=== PATIENT | female | born 1930 | race Asian ===

== ENCOUNTER 2017-10-30 08:26 | Inpatient (IN) | payer OTHER ==
[2017-10-30] MEDS: hydrALAzine 20 MG INJ IV (10:51)
[2017-10-30 10:53] LABS: ADD MAN DIFF? NO
[2017-10-30] MEDS: SOD CHLORIDE 0.9% 1,000 ML IV (11:01)
[2017-10-30] MEDS: morphine 2 MG INJ IV (11:01)
[2017-10-30] MEDS: ONDANSETRON 4 MG INJ IV (11:01)
[2017-10-30 11:05] LABS: WHITE BLOOD COUNT 9.7 10^3/ul (4.8-10.8)
[2017-10-30 11:05] LABS: BASOPHIL # 0.1 10^3/ul (0.0-0.1); BASOPHILS % 0.6 % (0.0-2.0); EOSINOPHILS # 0.3 10^3/ul (0.0-0.5); EOSINOPHILS % 2.6 % (0.0-7.0); HEMATOCRIT 40.2 % (37.0-47.0); HEMOGLOBIN 13.4 g/dl (12.0-16.0); LYMPHOCYTES # 2.5 10^3/ul (0.8-2.9); LYMPHOCYTES % 26.1 % (15.0-51.0); MEAN CORPUSCULAR HEMOGLOBIN 31.6 pg (29.0-33.0); MEAN CORPUSCULAR HGB CONC 33.3 g/dl (32.0-37.0); MEAN CORPUSCULAR VOLUME 94.8 fl (82.0-101.0); MEAN PLATELET VOLUME 10.9 fl (7.4-10.4); MONOCYTE # 1.5 10^3/ul (0.3-0.9); MONOCYTES % 15.2 % (0.0-11.0); NEUTROPHIL # 5.4 10^3/ul (1.6-7.5); NEUTROPHILS % 55.3 % (39.0-77.0); PLATELET COUNT 222 10^3/UL (140-415); RED BLOOD COUNT 4.24 10^6/ul (4.20-5.40); RED CELL DISTRIBUTION WIDTH 13.7 % (11.5-14.5)
[2017-10-30 11:22] LABS: INR 1.03; PROTIME 13.6 Sec (11.9-14.9); PT RATIO 1.1
[2017-10-30 11:23] LABS: PARTIAL THROMBOPLASTIN TIME 32.4 Sec (25.0-35.0)
[2017-10-30 11:26] LABS: ALANINE AMINOTRANSFERASE 23 IU/L (13-69); ALBUMIN 4.2 g/dl (3.3-4.9); ALBUMIN/GLOBULIN RATIO 1.07; ALKALINE PHOSPHATASE 89 IU/L (42-121); ANION GAP 15 (8-16); ASPARTATE AMINO TRANSFERASE 20 IU/L (15-46); BILIRUBIN,INDIRECT 0.2 mg/dl (0-1.1); BILIRUBIN,TOTAL 0.2 mg/dl (0.2-1.3); BLOOD UREA NITROGEN 13 mg/dl (7-20); CALCIUM 9.9 mg/dl (8.4-10.2); CARBON DIOXIDE 29 mmol/L (21-31); CHLORIDE 96 mmol/L (97-110); CREATINE KINASE 46 IU/L (23-200); CREATININE 0.74 mg/dl (0.44-1.00); GLUCOSE 116 mg/dl (70-220); POTASSIUM 4.5 mmol/L (3.5-5.1); SODIUM 135 mmol/L (135-144); TOTAL PROTEIN 8.1 g/dl (6.1-8.1)
[2017-10-30 11:37] LABS: ADD UMIC YES; UR ASCORBIC ACID 20 mg/dL (NEGATIVE); UR BILIRUBIN (Dip) NEGATIVE (NEGATIVE); UR BLOOD (Dip) NEGATIVE (NEGATIVE); UR CLARITY CLEAR (CLEAR); UR COLOR YELLOW (YELLOW); UR GLUCOSE (Dip) NEGATIVE (NEGATIVE); UR KETONES (Dip) NEGATIVE (NEGATIVE); UR LEUKOCYTE ESTERASE (Dip) NEGATIVE Leu/ul (NEGATIVE); UR NITRITE (Dip) NEGATIVE (NEGATIVE); UR RBC 1 /HPF (0-5); UR SPECIFIC GRAVITY (Dip) 1.004 (1.003-1.030); UR TOTAL PROTEIN (Dip) 1+ mg/dl (NEGATIVE); UR UROBILINOGEN (Dip) NEGATIVE (NEGATIVE); UR WBC 3 /HPF (0-5)
[2017-10-30 11:56] LABS: B-TYPE NATRIURETIC PEPTIDE 1310 PG/ML (0-450); CK INDEX 2.1; CK-MB 0.95 ng/ml (0.0-2.4)
[2017-10-30 11:59] LABS: TROPONIN-I < 0.012 ng/ml (0.00-0.12)
[2017-10-30] MEDS ORDERED: ZOLPIDEM 5 MG TAB PO (17:00)
[2017-10-30] MEDS ORDERED: ONDANSETRON 4 MG INJ IV (17:00)
[2017-10-30] MEDS ORDERED: GLUCOSE GEL 15 GRAM TUBE PO ×2 (17:30)
[2017-10-30] MEDS ORDERED: DEXTROSE 50% 50 ML SYRINGE IV ×2 (17:30)
[2017-10-30] MEDS ORDERED: GLUCAGON 1 MG INJ IM (17:30)
[2017-10-30] MEDS ORDERED: GLUCOSE GEL 15 GRAM TUBE BUCCAL (17:30)
[2017-10-30] MEDS: INSULIN ASPART [NOVOLOG] 3 ML PEN SC ×3 (17:35→21:00)
[2017-10-30] MEDS: DOCUSATE SODIUM 100 MG CAP PO (18:00)
[2017-10-30] MEDS: FUROSEMIDE 20 MG INJ IV (18:00)
[2017-10-30 18:44] LABS: CREATINE KINASE 60 IU/L (23-200)
[2017-10-30 18:46] LABS: MAGNESIUM 2.1 mg/dl (1.7-2.5)
[2017-10-30 18:57] LABS: CK INDEX 4.3; CK-MB 2.55 ng/ml (0.0-2.4)
[2017-10-30 19:02] LABS: TROPONIN-I 0.666 ng/ml (0.00-0.12)
[2017-10-30] MEDS: ATORVASTATIN 10 MG TAB PO (21:56)
[2017-10-30] MEDS: DOXAZOSIN 4 MG TAB PO (21:56)
[2017-10-30] MEDS: HYDROCODONE/APAP (5/325) TAB PO (23:59)
[2017-10-31 00:08] LABS: CREATINE KINASE 58 IU/L (23-200)
[2017-10-31 00:19] LABS: CK INDEX 5.2; CK-MB 3.02 ng/ml (0.0-2.4)
[2017-10-31 01:41] LABS: ADD MAN DIFF? NO
[2017-10-31 01:44] LABS: BASOPHIL # 0.1 10^3/ul (0.0-0.1); BASOPHILS % 0.8 % (0.0-2.0); EOSINOPHILS # 0.3 10^3/ul (0.0-0.5); EOSINOPHILS % 3.3 % (0.0-7.0); HEMATOCRIT 35.2 % (37.0-47.0); HEMOGLOBIN 11.8 g/dl (12.0-16.0); LYMPHOCYTES % 22.5 % (15.0-51.0); MEAN CORPUSCULAR HEMOGLOBIN 32.2 pg (29.0-33.0); MEAN CORPUSCULAR HGB CONC 33.5 g/dl (32.0-37.0); MEAN CORPUSCULAR VOLUME 96.2 fl (82.0-101.0); MONOCYTE # 1.3 10^3/ul (0.3-0.9); MONOCYTES % 14.8 % (0.0-11.0); NEUTROPHIL # 5.1 10^3/ul (1.6-7.5); NEUTROPHILS % 58.3 % (39.0-77.0); PLATELET COUNT 205 10^3/UL (140-415); RED BLOOD COUNT 3.66 10^6/ul (4.20-5.40)
[2017-10-31 01:44] LABS: WHITE BLOOD COUNT 8.7 10^3/ul (4.8-10.8)
[2017-10-31] MEDS: HEPARIN 1000 UNITS/ML 10 ML INJ IV (01:49)
[2017-10-31] MEDS: HEPARIN 25000 UNITS/250 ML 250 ML IV (01:51)
[2017-10-31] MEDS: ACCU-CHEK XX (02:00)
[2017-10-31 02:10] LABS: PROTIME 14.4 Sec (11.9-14.9); PT RATIO 1.1
[2017-10-31 02:18] LABS: PARTIAL THROMBOPLASTIN TIME 30.7 Sec (25.0-35.0)
[2017-10-31] MEDS: DOCUSATE SODIUM 100 MG CAP PO ×2 (06:49→20:38)
[2017-10-31] MEDS: PANTOPRAZOLE (EC) 40 MG TAB PO (06:49)
[2017-10-31] MEDS: LEVOTHYROXINE 50 MCG TAB PO (06:50)
[2017-10-31] MEDS ORDERED: HEPARIN 1000 UNITS/ML 10 ML INJ IV (07:30)
[2017-10-31] MEDS: INSULIN ASPART [NOVOLOG] 3 ML PEN SC ×7 (08:00→20:47)
[2017-10-31 08:12] LABS: ADD MAN DIFF? NO
[2017-10-31 08:15] LABS: WHITE BLOOD COUNT 9.2 10^3/ul (4.8-10.8)
[2017-10-31 08:15] LABS: BASOPHIL # 0.1 10^3/ul (0.0-0.1); BASOPHILS % 0.8 % (0.0-2.0); EOSINOPHILS # 0.3 10^3/ul (0.0-0.5); EOSINOPHILS % 3.6 % (0.0-7.0); HEMATOCRIT 38.6 % (37.0-47.0); LYMPHOCYTES # 2.5 10^3/ul (0.8-2.9); LYMPHOCYTES % 27.4 % (15.0-51.0); MEAN CORPUSCULAR HEMOGLOBIN 32.5 pg (29.0-33.0); MEAN CORPUSCULAR HGB CONC 33.7 g/dl (32.0-37.0); MEAN CORPUSCULAR VOLUME 96.5 fl (82.0-101.0); MEAN PLATELET VOLUME 11.3 fl (7.4-10.4); MONOCYTE # 1.2 10^3/ul (0.3-0.9); MONOCYTES % 12.9 % (0.0-11.0); NEUTROPHIL # 5.1 10^3/ul (1.6-7.5); NEUTROPHILS % 55.1 % (39.0-77.0); PLATELET COUNT 223 10^3/UL (140-415); RED CELL DISTRIBUTION WIDTH 14.2 % (11.5-14.5)
[2017-10-31] MEDS: VALSARTAN 160 MG TAB PO (08:24)
[2017-10-31] MEDS: LORATADINE 10 MG TAB PO (08:24)
[2017-10-31] MEDS: CLOPIDOGREL 75 MG TAB PO (08:24)
[2017-10-31] MEDS: ASPIRIN 81 MG TAB PO (08:25)
[2017-10-31] MEDS: AMLODIPINE 5 MG TAB PO (08:25)
[2017-10-31] MEDS: CALCIUM CARBONATE 1.25 GM TAB PO (08:25)
[2017-10-31] MEDS: NEBIVOLOL 5 MG TAB PO (08:25)
[2017-10-31] MEDS: INSULIN GLARGINE [LANtus] 3 ML PEN SC (08:28)
[2017-10-31 08:35] LABS: HEMOGLOBIN A1C 6.3 % (0-5.9)
[2017-10-31 08:40] LABS: ANION GAP 14 (8-16); BLOOD UREA NITROGEN 19 mg/dl (7-20); CARBON DIOXIDE 28 mmol/L (21-31); CHLORIDE 99 mmol/L (97-110); CHOL/HDL RATIO 2.8 RATIO; CHOLESTEROL 88 mg/dl (100-200); CREATININE 0.82 mg/dl (0.44-1.00); GLUCOSE 110 mg/dl (70-220); HDL CHOLESTEROL 31 mg/dl (33-92); LDL CHOLESTEROL,CALCULATED 36 mg/dl; MAGNESIUM 2.2 mg/dl (1.7-2.5); POTASSIUM 4.3 mmol/L (3.5-5.1); SODIUM 137 mmol/L (135-144); TRIGLYCERIDES 105 mg/dl (0-149)
[2017-10-31 08:42] LABS: CREATINE KINASE 58 IU/L (23-200)
[2017-10-31 08:47] LABS: CK INDEX 4.7; CK-MB 2.74 ng/ml (0.0-2.4)
[2017-10-31 08:48] LABS: TROPONIN-I 0.637 ng/ml (0.00-0.12)
[2017-10-31] MEDS ORDERED: ENOXAPARIN 40 MG/0.4 ML SYG SC (09:00)
[2017-10-31 09:10] LABS: PARTIAL THROMBOPLASTIN TIME 140.9 Sec (25.0-35.0)
[2017-10-31 11:11] LABS: CREATINE KINASE 51 IU/L (23-200)
[2017-10-31 11:20] LABS: CK INDEX 4.3; CK-MB 2.17 ng/ml (0.0-2.4)
[2017-10-31 11:23] LABS: FREE THYROXINE INDEX (Calc) 4.01 ug/ml (0.65-3.89); T3 UPTAKE 40.1 % (23.5-40.5)
[2017-10-31 11:26] LABS: TROPONIN-I 0.454 ng/ml (0.00-0.12)
[2017-10-31 11:36] LABS: THYROID STIMULATING HORMONE 0.815 MIU/L (0.465-4.680)
[2017-10-31] MEDS: GUAIFENESIN/DM (SR) TAB PO ×2 (13:50→20:37)
[2017-10-31] MEDS: OLOPATADINE 0.1% 5 ML OPH BOTH EYES ×2 (13:50→20:39)
[2017-10-31] MEDS ORDERED: SALINE 0.65% 45 ML NAS SPRAY NASAL (14:30)
[2017-10-31 18:32] LABS: CREATINE KINASE 63 IU/L (23-200)
[2017-10-31 18:35] LABS: PARTIAL THROMBOPLASTIN TIME 32.7 Sec (25.0-35.0)
[2017-10-31 18:45] LABS: CK INDEX 2.9; CK-MB 1.84 ng/ml (0.0-2.4)
[2017-10-31 18:46] LABS: TROPONIN-I 0.382 ng/ml (0.00-0.12)
[2017-10-31] MEDS: ATORVASTATIN 10 MG TAB PO (20:37)
[2017-10-31] MEDS: DOXAZOSIN 4 MG TAB PO (20:37)
[2017-10-31] MEDS: LATANOPROST 0.005% 2.5 ML OPH BOTH EYES (20:38)
[2017-11-01] MEDS: ACCU-CHEK XX (03:00)
[2017-11-01] MEDS: PANTOPRAZOLE (EC) 40 MG TAB PO (06:05)
[2017-11-01] MEDS: LEVOTHYROXINE 50 MCG TAB PO (06:06)
[2017-11-01] MEDS: INSULIN ASPART [NOVOLOG] 3 ML PEN SC ×7 (08:51→20:59)
[2017-11-01] MEDS: INSULIN GLARGINE [LANtus] 3 ML PEN SC (08:53)
[2017-11-01] MEDS: ASPIRIN 81 MG TAB PO (08:54)
[2017-11-01] MEDS: OLOPATADINE 0.1% 5 ML OPH BOTH EYES ×2 (08:54→20:52)
[2017-11-01] MEDS: CLOPIDOGREL 75 MG TAB PO (08:55)
[2017-11-01] MEDS: AMLODIPINE 5 MG TAB PO (08:55)
[2017-11-01] MEDS: VALSARTAN 160 MG TAB PO ×2 (08:55→20:50)
[2017-11-01] MEDS: DOCUSATE SODIUM 100 MG CAP PO ×2 (08:56→20:50)
[2017-11-01] MEDS: GUAIFENESIN/DM (SR) TAB PO ×2 (08:56→20:50)
[2017-11-01] MEDS: LORATADINE 10 MG TAB PO (08:56)
[2017-11-01] MEDS: NEBIVOLOL 5 MG TAB PO (08:56)
[2017-11-01] MEDS: CALCIUM CARBONATE 1.25 GM TAB PO (08:56)
[2017-11-01 08:59] LABS: ADD MAN DIFF? NO
[2017-11-01 09:06] LABS: BASOPHIL # 0.1 10^3/ul (0.0-0.1); BASOPHILS % 0.8 % (0.0-2.0); EOSINOPHILS # 0.4 10^3/ul (0.0-0.5); EOSINOPHILS % 3.5 % (0.0-7.0); HEMATOCRIT 36.9 % (37.0-47.0); HEMOGLOBIN 12.4 g/dl (12.0-16.0); LYMPHOCYTES # 2.2 10^3/ul (0.8-2.9); LYMPHOCYTES % 21.8 % (15.0-51.0); MEAN CORPUSCULAR HEMOGLOBIN 32.1 pg (29.0-33.0); MEAN CORPUSCULAR HGB CONC 33.6 g/dl (32.0-37.0); MEAN CORPUSCULAR VOLUME 95.6 fl (82.0-101.0); MEAN PLATELET VOLUME 11.7 fl (7.4-10.4); MONOCYTE # 1.4 10^3/ul (0.3-0.9); MONOCYTES % 13.3 % (0.0-11.0); NEUTROPHIL # 6.1 10^3/ul (1.6-7.5); NEUTROPHILS % 60.4 % (39.0-77.0); PLATELET COUNT 201 10^3/UL (140-415); RED BLOOD COUNT 3.86 10^6/ul (4.20-5.40)
[2017-11-01 09:06] LABS: WHITE BLOOD COUNT 10.2 10^3/ul (4.8-10.8)
[2017-11-01 09:52] LABS: B-TYPE NATRIURETIC PEPTIDE 1470 PG/ML (0-450)
[2017-11-01 09:57] LABS: ALBUMIN 3.5 g/dl (3.3-4.9); ANION GAP 13 (8-16); BLOOD UREA NITROGEN 21 mg/dl (7-20); CALCIUM 8.8 mg/dl (8.4-10.2); CARBON DIOXIDE 28 mmol/L (21-31); CHLORIDE 99 mmol/L (97-110); CREATININE 0.82 mg/dl (0.44-1.00); GLUCOSE 183 mg/dl (70-220); MAGNESIUM 2.2 mg/dl (1.7-2.5); PHOSPHORUS 3.1 mg/dl (2.5-4.9); POTASSIUM 4.3 mmol/L (3.5-5.1); SODIUM 136 mmol/L (135-144)
[2017-11-01] MEDS: FUROSEMIDE 20 MG INJ IV ×2 (12:33→20:58)
[2017-11-01] MEDS: DOXAZOSIN 4 MG TAB PO (20:49)
[2017-11-01] MEDS: ATORVASTATIN 10 MG TAB PO (20:49)
[2017-11-01] MEDS: LATANOPROST 0.005% 2.5 ML OPH BOTH EYES (20:52)
[2017-11-02] MEDS: ACCU-CHEK XX (02:00)
[2017-11-02] MEDS: PANTOPRAZOLE (EC) 40 MG TAB PO (05:57)
[2017-11-02] MEDS: LEVOTHYROXINE 50 MCG TAB PO (05:57)
[2017-11-02] MEDS: INSULIN ASPART [NOVOLOG] 3 ML PEN SC ×7 (08:00→20:39)
[2017-11-02] MEDS: INSULIN GLARGINE [LANtus] 3 ML PEN SC (08:02)
[2017-11-02] MEDS: OLOPATADINE 0.1% 5 ML OPH BOTH EYES ×2 (08:31→20:35)
[2017-11-02] MEDS: FUROSEMIDE 20 MG INJ IV ×2 (08:31→20:37)
[2017-11-02] MEDS: NEBIVOLOL 5 MG TAB PO (08:32)
[2017-11-02] MEDS: ASPIRIN 81 MG TAB PO (08:32)
[2017-11-02] MEDS: VALSARTAN 160 MG TAB PO ×2 (08:33→20:37)
[2017-11-02] MEDS: GUAIFENESIN/DM (SR) TAB PO ×2 (08:33→20:35)
[2017-11-02] MEDS: DOCUSATE SODIUM 100 MG CAP PO ×2 (08:33→20:36)
[2017-11-02] MEDS: LORATADINE 10 MG TAB PO (08:33)
[2017-11-02] MEDS: CLOPIDOGREL 75 MG TAB PO (08:34)
[2017-11-02] MEDS: CALCIUM CARBONATE 1.25 GM TAB PO (08:34)
[2017-11-02] MEDS: AMLODIPINE 5 MG TAB PO (08:34)
[2017-11-02 09:00] LABS: ADD MAN DIFF? NO
[2017-11-02 09:02] LABS: BASOPHIL # 0.1 10^3/ul (0.0-0.1); BASOPHILS % 0.7 % (0.0-2.0); EOSINOPHILS # 0.4 10^3/ul (0.0-0.5); EOSINOPHILS % 4.8 % (0.0-7.0); HEMATOCRIT 39.4 % (37.0-47.0); HEMOGLOBIN 13.5 g/dl (12.0-16.0); LYMPHOCYTES # 2.2 10^3/ul (0.8-2.9); LYMPHOCYTES % 25.9 % (15.0-51.0); MEAN CORPUSCULAR HEMOGLOBIN 32.3 pg (29.0-33.0); MEAN CORPUSCULAR HGB CONC 34.3 g/dl (32.0-37.0); MEAN CORPUSCULAR VOLUME 94.3 fl (82.0-101.0); MEAN PLATELET VOLUME 11.2 fl (7.4-10.4); MONOCYTE # 1.3 10^3/ul (0.3-0.9); NEUTROPHIL # 4.4 10^3/ul (1.6-7.5); NEUTROPHILS % 52.2 % (39.0-77.0); PLATELET COUNT 225 10^3/UL (140-415); RED BLOOD COUNT 4.18 10^6/ul (4.20-5.40)
[2017-11-02 09:02] LABS: WHITE BLOOD COUNT 8.4 10^3/ul (4.8-10.8)
[2017-11-02 09:28] LABS: ALBUMIN 3.7 g/dl (3.3-4.9); ANION GAP 14 (8-16); BLOOD UREA NITROGEN 23 mg/dl (7-20); CALCIUM 8.7 mg/dl (8.4-10.2); CARBON DIOXIDE 29 mmol/L (21-31); CHLORIDE 99 mmol/L (97-110); CREATININE 0.82 mg/dl (0.44-1.00); GLUCOSE 145 mg/dl (70-220); MAGNESIUM 2.1 mg/dl (1.7-2.5); PHOSPHORUS 3.4 mg/dl (2.5-4.9); POTASSIUM 3.9 mmol/L (3.5-5.1); SODIUM 138 mmol/L (135-144)
[2017-11-02] MEDS: LATANOPROST 0.005% 2.5 ML OPH BOTH EYES (20:35)
[2017-11-02] MEDS: ATORVASTATIN 10 MG TAB PO (20:36)
[2017-11-02] MEDS: DOXAZOSIN 4 MG TAB PO (20:36)
[2017-11-03] MEDS: ACCU-CHEK XX (01:43)
[2017-11-03] MEDS: hydrALAzine 20 MG INJ IV ×3 (04:54→20:08)
[2017-11-03] MEDS: LEVOTHYROXINE 50 MCG TAB PO (06:02)
[2017-11-03] MEDS: PANTOPRAZOLE (EC) 40 MG TAB PO (06:03)
[2017-11-03] MEDS: OLOPATADINE 0.1% 5 ML OPH BOTH EYES ×2 (08:16→20:03)
[2017-11-03] MEDS: ASPIRIN 81 MG TAB PO (08:17)
[2017-11-03] MEDS: FUROSEMIDE 20 MG INJ IV ×2 (08:17→20:05)
[2017-11-03] MEDS: NEBIVOLOL 5 MG TAB PO (08:17)
[2017-11-03] MEDS: DOCUSATE SODIUM 100 MG CAP PO ×2 (08:18→20:05)
[2017-11-03] MEDS: GUAIFENESIN/DM (SR) TAB PO ×2 (08:18→20:06)
[2017-11-03] MEDS: AMLODIPINE 5 MG TAB PO (08:18)
[2017-11-03] MEDS: VALSARTAN 160 MG TAB PO ×2 (08:18→20:06)
[2017-11-03] MEDS: LORATADINE 10 MG TAB PO (08:18)
[2017-11-03] MEDS: CLOPIDOGREL 75 MG TAB PO (08:19)
[2017-11-03] MEDS: CALCIUM CARBONATE 1.25 GM TAB PO (08:19)
[2017-11-03] MEDS: INSULIN ASPART [NOVOLOG] 3 ML PEN SC ×7 (08:20→20:10)
[2017-11-03] MEDS: INSULIN GLARGINE [LANtus] 3 ML PEN SC (08:20)
[2017-11-03 08:23] LABS: ANION GAP 17 (8-16); BLOOD UREA NITROGEN 30 mg/dl (7-20); CALCIUM 9.1 mg/dl (8.4-10.2); CARBON DIOXIDE 25 mmol/L (21-31); CHLORIDE 99 mmol/L (97-110); CREATININE 0.91 mg/dl (0.44-1.00); GLUCOSE 191 mg/dl (70-220); POTASSIUM 3.9 mmol/L (3.5-5.1); SODIUM 137 mmol/L (135-144)
[2017-11-03] MEDS: LATANOPROST 0.005% 2.5 ML OPH BOTH EYES (20:03)
[2017-11-03] MEDS: DOXAZOSIN 4 MG TAB PO (20:05)
[2017-11-03] MEDS: ATORVASTATIN 10 MG TAB PO (20:06)
[2017-11-03] MEDS: ACETAMINOPHEN 325 MG TAB PO (20:06)
== END 2017-11-03 23:15 | disposition home health service (06) | DRG 304 ==
LOC: E/R 08:26 → MS3 12:36 → MS4 23:43
DX: I16.0 Hypertensive urgency (principal); I50.31 Acute diastolic (congestive) heart failure; I11.0 Hypertensive heart disease with heart failure; E78.5 Hyperlipidemia, unspecified; E11.9 Type 2 diabetes mellitus without complications; E03.9 Hypothyroidism, unspecified; R74.8 Abnormal levels of other serum enzymes; Z79.02 Long term (current) use of antithrombotics/antiplatelets; Z79.84 Long term (current) use of oral hypoglycemic drugs
CPT/HCPCS: 70450; 70551; 71045; 80048; 80053; 80061; 80069; 81001; 82550; 82553; 82962; 83036; 83735; 83880; 84436; 84443; 84479; 84484; 85025; 85610; 85730; 87086; 93005; 93306; 93880; 96374; 96375; 97110; 97116; 97530; 99285-25; J1940

== ENCOUNTER 2018-01-31 10:49 | Inpatient (IN) | payer OTHER ==
[2018-01-31] MEDS: ALBUTEROL 0.5% (NEB) 2.5 MG/0.5 ML AMP INH (11:19)
[2018-01-31] MEDS: METHYLPREDNISOLONE 125 MG INJ IV (11:41)
[2018-01-31] MEDS: NICARDipine HCL 30 MG CAPSULE PO (11:42)
[2018-01-31] MEDS: SOD CHLORIDE 0.9% 500 ML IV (12:07)
[2018-01-31 12:11] LABS: ADD MAN DIFF? NO
[2018-01-31 12:14] LABS: WHITE BLOOD COUNT 15.3 10^3/ul (4.8-10.8)
[2018-01-31 12:14] LABS: ABNORMAL IP MESSAGE 1; BASOPHIL # 0.1 10^3/ul (0.0-0.1); BASOPHILS % 0.5 % (0.0-2.0); EOSINOPHILS # 0.2 10^3/ul (0.0-0.5); EOSINOPHILS % 1.1 % (0.0-7.0); HEMATOCRIT 34.8 % (37.0-47.0); HEMOGLOBIN 11.8 g/dl (12.0-16.0); LYMPHOCYTES # 2.1 10^3/ul (0.8-2.9); LYMPHOCYTES % 13.4 % (15.0-51.0); MEAN CORPUSCULAR HEMOGLOBIN 31.6 pg (29.0-33.0); MEAN CORPUSCULAR HGB CONC 33.9 g/dl (32.0-37.0); MEAN CORPUSCULAR VOLUME 93.3 fl (82.0-101.0); MEAN PLATELET VOLUME 11.3 fl (7.4-10.4); MONOCYTE # 1.7 10^3/ul (0.3-0.9); NEUTROPHIL # 11.2 10^3/ul (1.6-7.5); NEUTROPHILS % 72.8 % (39.0-77.0); PLATELET COUNT 253 10^3/UL (140-415); POSITIVE DIFF @See below; RED BLOOD COUNT 3.73 10^6/ul (4.20-5.40); RED CELL DISTRIBUTION WIDTH 13.2 % (11.5-14.5)
[2018-01-31 12:40] LABS: ALANINE AMINOTRANSFERASE 26 IU/L (13-69); ALBUMIN 3.9 g/dl (3.3-4.9); ALKALINE PHOSPHATASE 116 IU/L (42-121); ANION GAP 16 (8-16); ASPARTATE AMINO TRANSFERASE 26 IU/L (15-46); BILIRUBIN,INDIRECT 0.5 mg/dl (0-1.1); BILIRUBIN,TOTAL 0.5 mg/dl (0.2-1.3); BLOOD UREA NITROGEN 14 mg/dl (7-20); CALCIUM 9.6 mg/dl (8.4-10.2); CARBON DIOXIDE 27 mmol/L (21-31); CHLORIDE 89 mmol/L (97-110); CREATININE 0.68 mg/dl (0.44-1.00); GLUCOSE 84 mg/dl (70-220); POTASSIUM 4.3 mmol/L (3.5-5.1); SODIUM 128 mmol/L (135-144); TOTAL PROTEIN 8.2 g/dl (6.1-8.1)
[2018-01-31] MEDS ORDERED: SOD CHLORIDE 0.9% 1,000 ML IV (12:44)
[2018-01-31 12:51] LABS: B-TYPE NATRIURETIC PEPTIDE 7840 PG/ML (0-450); TROPONIN-I 0.088 ng/ml (0.000-0.120)
[2018-01-31] MEDS: CEFTRIAXONE 1 GM/50 ML (PMX) 50 ML IVPB (12:51)
[2018-01-31] MEDS ORDERED: NACL 0.9% 3 ML SYG IV (13:00)
[2018-01-31] MEDS ORDERED: morphine 2 MG INJ IV (13:00)
[2018-01-31] MEDS ORDERED: DOCUSATE SODIUM 100 MG CAP PO (13:00)
[2018-01-31] MEDS ORDERED: ACETAMINOPHEN 325 MG TAB PO (13:00)
[2018-01-31] MEDS ORDERED: VANCOMYCIN IV PER PHARMACY XX (13:00)
[2018-01-31] MEDS ORDERED: ONDANSETRON 4 MG INJ IV ×2 (13:00)
[2018-01-31] MEDS ORDERED: LORAZEPAM 2 MG INJ IV (13:00)
[2018-01-31] MEDS ORDERED: NA PHOSPHATE/BIPHOS 133 ML ENEMA PR (13:00)
[2018-01-31] MEDS ORDERED: NITROGLYCERIN (SL) 0.4 MG TAB SL (13:00)
[2018-01-31] MEDS ORDERED: ALBUTEROL/IPRATROPIUM (NEB) 3 ML AMP HHN (13:00)
[2018-01-31] MEDS ORDERED: HYDROCODONE/APAP (5/325) TAB PO (13:00)
[2018-01-31] MEDS: AZITHROMYCIN 500MG/NS (PMX) 250 ML IV (13:29)
[2018-01-31] MEDS: SOD CHLORIDE 0.45% 1,000 ML IV (13:40)
[2018-01-31 13:45] LABS: LACTIC ACID 2.6 mmol/L (0.5-2.0)
[2018-01-31] MEDS ORDERED: GLUCOSE GEL 15 GRAM TUBE PO ×2 (14:00)
[2018-01-31] MEDS ORDERED: DEXTROSE 50% 50 ML SYRINGE IV ×2 (14:00)
[2018-01-31] MEDS ORDERED: GLUCOSE GEL 15 GRAM TUBE BUCCAL (14:00)
[2018-01-31] MEDS ORDERED: GLUCAGON 1 MG INJ IM (14:00)
[2018-01-31 14:01] LABS: FREE T4 (FREE THYROXINE) 2.05 ng/dl (0.85-1.93)
[2018-01-31] MEDS ORDERED: VANCOMYCIN 1 GM in 250 ML IVPB (15:00)
[2018-01-31] MEDS: ALBUTEROL/IPRATROPIUM (NEB) 3 ML AMP HHN ×2 (16:33→21:10)
[2018-01-31 17:33] LABS: LACTIC ACID 3.1 mmol/L (0.5-2.0)
[2018-01-31] MEDS: PIPER-TAZO 3.375 GM IV (PMX) 100 ML IVPB (17:41)
[2018-01-31] MEDS: INSULIN ASPART [NOVOLOG] 3 ML PEN SC ×2 (17:43→20:52)
[2018-01-31] MEDS: HEPARIN 5,000 UNIT/0.5 ML VIAL SC (20:53)
[2018-01-31] MEDS: ATORVASTATIN 10 MG TAB PO (20:55)
[2018-01-31] MEDS: DOXAZOSIN 4 MG TAB PO (21:00)
[2018-01-31 21:32] LABS: LACTIC ACID 2.3 mmol/L (0.5-2.0)
[2018-02-01] MEDS: DOXAZOSIN 4 MG TAB PO ×2 (00:43→21:11)
[2018-02-01] MEDS: PIPER-TAZO 3.375 GM IV (PMX) 100 ML IVPB ×4 (00:44→17:26)
[2018-02-01] MEDS: ALBUTEROL/IPRATROPIUM (NEB) 3 ML AMP HHN ×2 (01:02→21:40)
[2018-02-01] MEDS: ACCU-CHEK XX (01:05)
[2018-02-01 01:18] LABS: LACTIC ACID 1.2 mmol/L (0.5-2.0)
[2018-02-01] MEDS: SOD CHLORIDE 0.45% 1,000 ML IV (02:07)
[2018-02-01] MEDS ORDERED: LEVOTHYROXINE 50 MCG TAB (05:32)
[2018-02-01] MEDS: LEVOTHYROXINE 50 MCG TAB PO (06:00)
[2018-02-01 06:37] LABS: WHITE BLOOD COUNT 13.7 10^3/ul (4.8-10.8)
[2018-02-01 06:37] LABS: HEMATOCRIT 30.7 % (37.0-47.0); HEMOGLOBIN 10.5 g/dl (12.0-16.0); MEAN CORPUSCULAR HEMOGLOBIN 31.3 pg (29.0-33.0); MEAN CORPUSCULAR HGB CONC 34.2 g/dl (32.0-37.0); MEAN CORPUSCULAR VOLUME 91.4 fl (82.0-101.0); MEAN PLATELET VOLUME 11.2 fl (7.4-10.4); PLATELET COUNT 254 10^3/UL (140-415); RED BLOOD COUNT 3.36 10^6/ul (4.20-5.40); RED CELL DISTRIBUTION WIDTH 12.9 % (11.5-14.5)
[2018-02-01 07:03] LABS: LACTIC ACID 1.1 mmol/L (0.5-2.0)
[2018-02-01 07:04] LABS: ADD MAN DIFF? YES; POSITIVE DIFF @See below
[2018-02-01 07:06] LABS: CHOLESTEROL 67 mg/dl (100-200)
[2018-02-01 07:06] LABS: HDL CHOLESTEROL 22 mg/dl (33-92); LDL CHOLESTEROL,CALCULATED 27 mg/dl; TRIGLYCERIDES 89 mg/dl (0-149)
[2018-02-01 07:08] LABS: HEMOGLOBIN A1C 6.7 % (0-5.9)
[2018-02-01 07:09] LABS: ANION GAP 15 (8-16); BLOOD UREA NITROGEN 13 mg/dl (7-20); CALCIUM 8.9 mg/dl (8.4-10.2); CARBON DIOXIDE 24 mmol/L (21-31); CHLORIDE 95 mmol/L (97-110); CREATININE 0.65 mg/dl (0.44-1.00); GLUCOSE 205 mg/dl (70-220); PHOSPHORUS 3.5 mg/dl (2.5-4.9); POTASSIUM 4.7 mmol/L (3.5-5.1); SODIUM 129 mmol/L (135-144)
[2018-02-01 07:53] LABS: ANISOCYTOSIS 3+ (0-0); BAND NEUTROPHILS % (M) 15 % (0-4); GIANT THROMBO% (M) 5 % (0-0); LYMPHOCYTES #M 1.2 10^3/ul (0.8-2.9); LYMPHOCYTES % (M) 9 % (15-51); MONOCYTE #M 1.2 10^3/ul (0.3-0.9); MONOCYTES % (M) 9 % (0-11); PLATELET ESTIMATE NORMAL; POIKILOCYTOSIS 1+ (0-0); SEG NEUT #M 9.5 10^3/ul (1.6-7.5); SEGMENTED NEUTROPHILS (M) % 67 % (39-77); SMUDGE%M 13 % (0-0)
[2018-02-01] MEDS: HEPARIN 5,000 UNIT/0.5 ML VIAL SC ×2 (08:30→21:14)
[2018-02-01] MEDS: INSULIN ASPART [NOVOLOG] 3 ML PEN SC ×4 (08:30→21:00)
[2018-02-01] MEDS: LORATADINE 10 MG TAB PO (08:31)
[2018-02-01] MEDS: CLOPIDOGREL 75 MG TAB PO (08:31)
[2018-02-01] MEDS: NEBIVOLOL 5 MG TAB PO (08:31)
[2018-02-01] MEDS: AMLODIPINE 10 MG TAB PO (08:31)
[2018-02-01] MEDS: hydrALAzine 20 MG INJ IV (09:58)
[2018-02-01 12:56] LABS: LACTIC ACID 3.4 mmol/L (0.5-2.0)
[2018-02-01] MEDS: VALSARTAN 160 MG TAB PO ×2 (15:08→21:11)
[2018-02-01] MEDS: OLOPATADINE 0.1% 5 ML OPH BOTH EYES ×2 (15:08→21:10)
[2018-02-01 16:02] LABS: LACTIC ACID 1.6 mmol/L (0.5-2.0)
[2018-02-01] MEDS ORDERED: morphine LIQ (10 MG/5 ML) CUP PO (18:00)
[2018-02-01] MEDS: LATANOPROST 0.005% 2.5 ML OPH BOTH EYES (21:10)
[2018-02-01] MEDS: ATORVASTATIN 10 MG TAB PO (21:11)
[2018-02-02] MEDS: PIPER-TAZO 3.375 GM IV (PMX) 100 ML IVPB ×4 (00:03→17:11)
[2018-02-02] MEDS ORDERED: VANCOMYCIN 750 MG in DEXTROSE 5% 150 ML IVPB (03:00)
[2018-02-02] MEDS: hydrALAzine 20 MG INJ IV (04:24)
[2018-02-02] MEDS: LEVOTHYROXINE 50 MCG TAB PO (06:16)
[2018-02-02] MEDS: INSULIN ASPART [NOVOLOG] 3 ML PEN SC ×4 (08:00→20:50)
[2018-02-02] MEDS: FUROSEMIDE 40 MG INJ IV (08:07)
[2018-02-02] MEDS: LORATADINE 10 MG TAB PO (08:08)
[2018-02-02] MEDS: VALSARTAN 160 MG TAB PO ×2 (08:09→20:12)
[2018-02-02] MEDS: AMLODIPINE 10 MG TAB PO (08:10)
[2018-02-02] MEDS: CLOPIDOGREL 75 MG TAB PO (08:10)
[2018-02-02] MEDS: NEBIVOLOL 5 MG TAB PO ×2 (08:10→10:10)
[2018-02-02] MEDS: HEPARIN 5,000 UNIT/0.5 ML VIAL SC ×2 (08:11→20:50)
[2018-02-02] MEDS: OLOPATADINE 0.1% 5 ML OPH BOTH EYES ×2 (08:11→20:12)
[2018-02-02] MEDS: CALCIUM CARBONATE 1.25 GM TAB PO (08:12)
[2018-02-02 08:54] LABS: ADD MAN DIFF? NO
[2018-02-02 09:00] LABS: ABNORMAL IP MESSAGE 1; BASOPHIL # 0.1 10^3/ul (0.0-0.1); BASOPHILS % 0.7 % (0.0-2.0); EOSINOPHILS # 0.3 10^3/ul (0.0-0.5); EOSINOPHILS % 1.8 % (0.0-7.0); HEMOGLOBIN 11.8 g/dl (12.0-16.0); LYMPHOCYTES # 2.1 10^3/ul (0.8-2.9); MEAN CORPUSCULAR HEMOGLOBIN 31.8 pg (29.0-33.0); MEAN CORPUSCULAR HGB CONC 33.7 g/dl (32.0-37.0); MEAN CORPUSCULAR VOLUME 94.3 fl (82.0-101.0); MEAN PLATELET VOLUME 10.7 fl (7.4-10.4); MONOCYTE # 1.8 10^3/ul (0.3-0.9); MONOCYTES % 12.1 % (0.0-11.0); NEUTROPHIL # 10.2 10^3/ul (1.6-7.5); NEUTROPHILS % 67.5 % (39.0-77.0); NUCLEATED RED BLOOD CELLS% 0.2 /100WBC (0.0-0.0); PLATELET COUNT 299 10^3/UL (140-415); RED BLOOD COUNT 3.71 10^6/ul (4.20-5.40); RED CELL DISTRIBUTION WIDTH 13.8 % (11.5-14.5)
[2018-02-02 09:00] LABS: WHITE BLOOD COUNT 15.2 10^3/ul (4.8-10.8)
[2018-02-02 09:03] LABS: POSITIVE DIFF @See below
[2018-02-02 09:23] LABS: ANION GAP 12 (8-16); BLOOD UREA NITROGEN 14 mg/dl (7-20); CALCIUM 8.8 mg/dl (8.4-10.2); CARBON DIOXIDE 27 mmol/L (21-31); CHLORIDE 103 mmol/L (97-110); GLUCOSE 128 mg/dl (70-220); SODIUM 138 mmol/L (135-144)
[2018-02-02] MEDS ORDERED: VITAMIN A & D 5 GM OINT PACKET TOP (15:04)
[2018-02-02] MEDS: ACETAMINOPHEN 325 MG TAB PO (20:11)
[2018-02-02] MEDS: ATORVASTATIN 10 MG TAB PO (20:11)
[2018-02-02] MEDS: LATANOPROST 0.005% 2.5 ML OPH BOTH EYES (20:11)
[2018-02-02] MEDS: DOXAZOSIN 4 MG TAB PO (20:11)
[2018-02-03] MEDS: PIPER-TAZO 3.375 GM IV (PMX) 100 ML IVPB ×4 (00:08→17:33)
[2018-02-03 05:39] LABS: ADD MAN DIFF? NO
[2018-02-03 05:52] LABS: ABNORMAL IP MESSAGE 1; BASOPHIL # 0.1 10^3/ul (0.0-0.1); EOSINOPHILS # 0.4 10^3/ul (0.0-0.5); HEMATOCRIT 34.4 % (37.0-47.0); HEMOGLOBIN 11.5 g/dl (12.0-16.0); LYMPHOCYTES # 2.4 10^3/ul (0.8-2.9); LYMPHOCYTES % 22.1 % (15.0-51.0); MEAN CORPUSCULAR HEMOGLOBIN 31.6 pg (29.0-33.0); MEAN CORPUSCULAR HGB CONC 33.4 g/dl (32.0-37.0); MEAN CORPUSCULAR VOLUME 94.5 fl (82.0-101.0); MEAN PLATELET VOLUME 10.6 fl (7.4-10.4); MONOCYTE # 1.6 10^3/ul (0.3-0.9); MONOCYTES % 14.8 % (0.0-11.0); NEUTROPHIL # 6.1 10^3/ul (1.6-7.5); NEUTROPHILS % 55.3 % (39.0-77.0); NUCLEATED RED BLOOD CELLS # 0.1 10^3/ul (0.0-0.0); NUCLEATED RED BLOOD CELLS% 0.5 /100WBC (0.0-0.0); PLATELET COUNT 305 10^3/UL (140-415); RED BLOOD COUNT 3.64 10^6/ul (4.20-5.40); RED CELL DISTRIBUTION WIDTH 13.6 % (11.5-14.5)
[2018-02-03 05:57] LABS: POSITIVE DIFF @See below
[2018-02-03] MEDS: LEVOTHYROXINE 50 MCG TAB PO (06:05)
[2018-02-03 06:09] LABS: ANION GAP 12 (8-16); BLOOD UREA NITROGEN 16 mg/dl (7-20); CALCIUM 8.6 mg/dl (8.4-10.2); CARBON DIOXIDE 28 mmol/L (21-31); CHLORIDE 102 mmol/L (97-110); CREATININE 0.86 mg/dl (0.44-1.00); GLUCOSE 121 mg/dl (70-220); POTASSIUM 3.7 mmol/L (3.5-5.1); SODIUM 138 mmol/L (135-144)
[2018-02-03] MEDS: INSULIN ASPART [NOVOLOG] 3 ML PEN SC ×4 (07:58→20:56)
[2018-02-03] MEDS: VALSARTAN 160 MG TAB PO ×2 (08:02→20:46)
[2018-02-03] MEDS: CLOPIDOGREL 75 MG TAB PO (08:02)
[2018-02-03] MEDS: LORATADINE 10 MG TAB PO (08:02)
[2018-02-03] MEDS: CALCIUM CARBONATE 1.25 GM TAB PO (08:02)
[2018-02-03] MEDS: OLOPATADINE 0.1% 5 ML OPH BOTH EYES ×2 (08:03→20:42)
[2018-02-03] MEDS: AMLODIPINE 10 MG TAB PO (08:03)
[2018-02-03] MEDS: HEPARIN 5,000 UNIT/0.5 ML VIAL SC ×2 (08:04→20:45)
[2018-02-03] MEDS: NEBIVOLOL 5 MG TAB PO (08:06)
[2018-02-03] MEDS: FUROSEMIDE 20 MG TAB PO (08:09)
[2018-02-03] MEDS: hydrALAzine 20 MG INJ IV ×2 (10:17→18:18)
[2018-02-03] MEDS: DOXAZOSIN 4 MG TAB PO (20:40)
[2018-02-03] MEDS: ATORVASTATIN 10 MG TAB PO (20:46)
[2018-02-03] MEDS: LATANOPROST 0.005% 2.5 ML OPH BOTH EYES (20:51)
[2018-02-04] MEDS: hydrALAzine 20 MG INJ IV ×2 (02:00→11:44)
[2018-02-04 05:53] LABS: ADD MAN DIFF? NO
[2018-02-04 05:59] LABS: WHITE BLOOD COUNT 13.8 10^3/ul (4.8-10.8)
[2018-02-04 05:59] LABS: ABNORMAL IP MESSAGE 1; BASOPHIL # 0.1 10^3/ul (0.0-0.1); BASOPHILS % 0.7 % (0.0-2.0); EOSINOPHILS # 0.5 10^3/ul (0.0-0.5); EOSINOPHILS % 3.3 % (0.0-7.0); HEMATOCRIT 33.8 % (37.0-47.0); HEMOGLOBIN 11.5 g/dl (12.0-16.0); LYMPHOCYTES # 2.8 10^3/ul (0.8-2.9); MEAN CORPUSCULAR HEMOGLOBIN 31.9 pg (29.0-33.0); MEAN CORPUSCULAR VOLUME 93.9 fl (82.0-101.0); MEAN PLATELET VOLUME 10.1 fl (7.4-10.4); MONOCYTE # 1.7 10^3/ul (0.3-0.9); MONOCYTES % 12.6 % (0.0-11.0); NEUTROPHIL # 8.5 10^3/ul (1.6-7.5); NEUTROPHILS % 61.2 % (39.0-77.0); NUCLEATED RED BLOOD CELLS% 0.3 /100WBC (0.0-0.0); PLATELET COUNT 309 10^3/UL (140-415); RED CELL DISTRIBUTION WIDTH 13.7 % (11.5-14.5)
[2018-02-04 06:10] LABS: POSITIVE DIFF @See below
[2018-02-04 06:20] LABS: ANION GAP 9 (8-16); BLOOD UREA NITROGEN 13 mg/dl (7-20); CALCIUM 8.7 mg/dl (8.4-10.2); CARBON DIOXIDE 28 mmol/L (21-31); CHLORIDE 103 mmol/L (97-110); CREATININE 0.83 mg/dl (0.44-1.00); GLUCOSE 120 mg/dl (70-220); POTASSIUM 3.6 mmol/L (3.5-5.1); SODIUM 136 mmol/L (135-144)
[2018-02-04] MEDS: LEVOTHYROXINE 50 MCG TAB PO (06:34)
[2018-02-04] MEDS: LEVOFLOXACIN 500 MG TAB PO (06:35)
[2018-02-04] MEDS: INSULIN ASPART [NOVOLOG] 3 ML PEN SC ×4 (07:53→20:51)
[2018-02-04] MEDS: CALCIUM CARBONATE 1.25 GM TAB PO (08:49)
[2018-02-04] MEDS: CLOPIDOGREL 75 MG TAB PO (08:49)
[2018-02-04] MEDS: AMLODIPINE 10 MG TAB PO (08:50)
[2018-02-04] MEDS: LORATADINE 10 MG TAB PO (08:50)
[2018-02-04] MEDS: VALSARTAN 160 MG TAB PO ×2 (08:50→20:38)
[2018-02-04] MEDS: NEBIVOLOL 5 MG TAB PO ×2 (08:50→20:39)
[2018-02-04] MEDS: OLOPATADINE 0.1% 5 ML OPH BOTH EYES ×2 (08:51→20:41)
[2018-02-04] MEDS: FUROSEMIDE 20 MG TAB PO (08:53)
[2018-02-04] MEDS: HEPARIN 5,000 UNIT/0.5 ML VIAL SC ×2 (08:54→20:51)
[2018-02-04] MEDS: NYSTATIN 15 GM OINT TOP ×2 (12:38→20:53)
[2018-02-04] MEDS ORDERED: NEBIVOLOL 5 MG TAB PO (20:30)
[2018-02-04] MEDS: ATORVASTATIN 10 MG TAB PO (20:38)
[2018-02-04] MEDS: DOXAZOSIN 4 MG TAB PO (20:39)
[2018-02-04] MEDS: LATANOPROST 0.005% 2.5 ML OPH BOTH EYES (20:41)
[2018-02-04] MEDS ORDERED: DOXAZOSIN 4 MG TAB PO (21:00)
[2018-02-05] MEDS: hydrALAzine 20 MG INJ IV (02:02)
[2018-02-05] MEDS: LEVOFLOXACIN 500 MG TAB PO (06:06)
[2018-02-05 06:34] LABS: ADD MAN DIFF? NO
[2018-02-05] MEDS: LEVOTHYROXINE 50 MCG TAB PO (06:35)
[2018-02-05 06:48] LABS: BASOPHIL # 0.1 10^3/ul (0.0-0.1); BASOPHILS % 0.6 % (0.0-2.0); EOSINOPHILS # 0.5 10^3/ul (0.0-0.5); EOSINOPHILS % 3.5 % (0.0-7.0); HEMOGLOBIN 11.3 g/dl (12.0-16.0); LYMPHOCYTES # 2.5 10^3/ul (0.8-2.9); LYMPHOCYTES % 17.9 % (15.0-51.0); MEAN CORPUSCULAR HEMOGLOBIN 31.2 pg (29.0-33.0); MEAN CORPUSCULAR HGB CONC 33.2 g/dl (32.0-37.0); MEAN CORPUSCULAR VOLUME 93.9 fl (82.0-101.0); MEAN PLATELET VOLUME 10.2 fl (7.4-10.4); MONOCYTE # 1.5 10^3/ul (0.3-0.9); MONOCYTES % 10.6 % (0.0-11.0); NEUTROPHIL # 9.4 10^3/ul (1.6-7.5); NEUTROPHILS % 65.9 % (39.0-77.0); NUCLEATED RED BLOOD CELLS% 0.1 /100WBC (0.0-0.0); PLATELET COUNT 325 10^3/UL (140-415); RED BLOOD COUNT 3.62 10^6/ul (4.20-5.40); RED CELL DISTRIBUTION WIDTH 13.9 % (11.5-14.5)
[2018-02-05 06:48] LABS: WHITE BLOOD COUNT 14.2 10^3/ul (4.8-10.8)
[2018-02-05 07:04] LABS: ANION GAP 10 (8-16); BLOOD UREA NITROGEN 13 mg/dl (7-20); CALCIUM 9.1 mg/dl (8.4-10.2); CARBON DIOXIDE 29 mmol/L (21-31); CHLORIDE 103 mmol/L (97-110); CREATININE 0.87 mg/dl (0.44-1.00); GLUCOSE 135 mg/dl (70-220); POTASSIUM 3.6 mmol/L (3.5-5.1); SODIUM 138 mmol/L (135-144)
[2018-02-05] MEDS: INSULIN ASPART [NOVOLOG] 3 ML PEN SC ×4 (08:14→20:23)
[2018-02-05] MEDS: NEBIVOLOL 5 MG TAB PO ×3 (09:00→20:10)
[2018-02-05] MEDS: OLOPATADINE 0.1% 5 ML OPH BOTH EYES ×2 (09:21→20:11)
[2018-02-05] MEDS: CALCIUM CARBONATE 1.25 GM TAB PO (09:22)
[2018-02-05] MEDS: VALSARTAN 160 MG TAB PO ×2 (09:23→20:11)
[2018-02-05] MEDS: LORATADINE 10 MG TAB PO (09:23)
[2018-02-05] MEDS: CLOPIDOGREL 75 MG TAB PO (09:23)
[2018-02-05] MEDS: FUROSEMIDE 20 MG TAB PO (09:23)
[2018-02-05] MEDS: AMLODIPINE 10 MG TAB PO (09:23)
[2018-02-05] MEDS: POTASSIUM CHLORIDE (SR) 20 MEQ TAB PO (09:24)
[2018-02-05] MEDS: HEPARIN 5,000 UNIT/0.5 ML VIAL SC ×2 (09:24→20:13)
[2018-02-05] MEDS: NYSTATIN 15 GM OINT TOP ×2 (09:29→20:25)
[2018-02-05] MEDS: ATORVASTATIN 10 MG TAB PO (20:09)
[2018-02-05] MEDS: DOXAZOSIN 4 MG TAB PO (20:10)
[2018-02-05] MEDS: LATANOPROST 0.005% 2.5 ML OPH BOTH EYES (20:11)
[2018-02-05] MEDS: ALBUTEROL/IPRATROPIUM (NEB) 3 ML AMP HHN (23:28)
[2018-02-06 05:17] LABS: ADD MAN DIFF? NO
[2018-02-06 05:19] LABS: BASOPHIL # 0.1 10^3/ul (0.0-0.1); BASOPHILS % 0.6 % (0.0-2.0); EOSINOPHILS # 0.3 10^3/ul (0.0-0.5); EOSINOPHILS % 2.6 % (0.0-7.0); HEMATOCRIT 35.4 % (37.0-47.0); HEMOGLOBIN 11.8 g/dl (12.0-16.0); LYMPHOCYTES # 2.9 10^3/ul (0.8-2.9); LYMPHOCYTES % 21.9 % (15.0-51.0); MEAN CORPUSCULAR HGB CONC 33.3 g/dl (32.0-37.0); MEAN CORPUSCULAR VOLUME 95.9 fl (82.0-101.0); MEAN PLATELET VOLUME 9.6 fl (7.4-10.4); MONOCYTE # 1.3 10^3/ul (0.3-0.9); MONOCYTES % 9.9 % (0.0-11.0); NEUTROPHIL # 8.5 10^3/ul (1.6-7.5); NEUTROPHILS % 63.7 % (39.0-77.0); PLATELET COUNT 322 10^3/UL (140-415); RED BLOOD COUNT 3.69 10^6/ul (4.20-5.40); RED CELL DISTRIBUTION WIDTH 14.3 % (11.5-14.5)
[2018-02-06 05:19] LABS: WHITE BLOOD COUNT 13.3 10^3/ul (4.8-10.8)
[2018-02-06] MEDS: LEVOFLOXACIN 500 MG TAB PO (05:47)
[2018-02-06 05:59] LABS: ANION GAP 11 (8-16); BLOOD UREA NITROGEN 17 mg/dl (7-20); CALCIUM 9.9 mg/dl (8.4-10.2); CARBON DIOXIDE 29 mmol/L (21-31); CHLORIDE 102 mmol/L (97-110); CREATININE 1.09 mg/dl (0.44-1.00); GLUCOSE 149 mg/dl (70-220); POTASSIUM 4.2 mmol/L (3.5-5.1); SODIUM 138 mmol/L (135-144)
[2018-02-06] MEDS: LEVOTHYROXINE 50 MCG TAB PO (07:05)
[2018-02-06] MEDS: INSULIN ASPART [NOVOLOG] 3 ML PEN SC ×4 (08:00→20:56)
[2018-02-06] MEDS: OLOPATADINE 0.1% 5 ML OPH BOTH EYES ×2 (08:33→20:45)
[2018-02-06] MEDS: HEPARIN 5,000 UNIT/0.5 ML VIAL SC ×2 (08:34→20:52)
[2018-02-06] MEDS: FUROSEMIDE 20 MG TAB PO ×2 (08:35→17:41)
[2018-02-06] MEDS: LORATADINE 10 MG TAB PO (08:36)
[2018-02-06] MEDS: VALSARTAN 160 MG TAB PO ×2 (08:36→20:45)
[2018-02-06] MEDS: AMLODIPINE 10 MG TAB PO (08:36)
[2018-02-06] MEDS: CLOPIDOGREL 75 MG TAB PO (08:36)
[2018-02-06] MEDS: CALCIUM CARBONATE 1.25 GM TAB PO (08:36)
[2018-02-06] MEDS: NEBIVOLOL 5 MG TAB PO ×2 (08:37→20:46)
[2018-02-06] MEDS: NYSTATIN 15 GM OINT TOP ×2 (08:38→20:47)
[2018-02-06] MEDS: NIFEdipine (XL) 30 MG TAB PO (16:35)
[2018-02-06] MEDS: LATANOPROST 0.005% 2.5 ML OPH BOTH EYES (20:45)
[2018-02-06] MEDS: ATORVASTATIN 10 MG TAB PO (20:46)
[2018-02-06] MEDS: DOXAZOSIN 4 MG TAB PO (20:46)
[2018-02-07] MEDS: ALBUTEROL/IPRATROPIUM (NEB) 3 ML AMP HHN (02:07)
[2018-02-07 05:38] LABS: ADD MAN DIFF? NO
[2018-02-07 05:48] LABS: WHITE BLOOD COUNT 12.2 10^3/ul (4.8-10.8)
[2018-02-07 05:48] LABS: BASOPHIL # 0.1 10^3/ul (0.0-0.1); BASOPHILS % 0.6 % (0.0-2.0); EOSINOPHILS # 0.2 10^3/ul (0.0-0.5); EOSINOPHILS % 1.9 % (0.0-7.0); HEMOGLOBIN 12.3 g/dl (12.0-16.0); LYMPHOCYTES # 2.2 10^3/ul (0.8-2.9); MEAN CORPUSCULAR HEMOGLOBIN 31.5 pg (29.0-33.0); MEAN CORPUSCULAR HGB CONC 33.2 g/dl (32.0-37.0); MEAN CORPUSCULAR VOLUME 94.9 fl (82.0-101.0); MEAN PLATELET VOLUME 10.3 fl (7.4-10.4); MONOCYTE # 1.2 10^3/ul (0.3-0.9); NEUTROPHIL # 8.3 10^3/ul (1.6-7.5); NEUTROPHILS % 68.3 % (39.0-77.0); PLATELET COUNT 329 10^3/UL (140-415); RED CELL DISTRIBUTION WIDTH 14.2 % (11.5-14.5)
[2018-02-07] MEDS: FUROSEMIDE 20 MG TAB PO (06:00)
[2018-02-07] MEDS: LEVOTHYROXINE 50 MCG TAB PO (06:17)
[2018-02-07 06:21] LABS: ANION GAP 15 (8-16); BLOOD UREA NITROGEN 26 mg/dl (7-20); CALCIUM 11.5 mg/dl (8.4-10.2); CARBON DIOXIDE 29 mmol/L (21-31); CHLORIDE 97 mmol/L (97-110); CREATININE 1.31 mg/dl (0.44-1.00); GLUCOSE 171 mg/dl (70-220); SODIUM 137 mmol/L (135-144)
[2018-02-07] MEDS: INSULIN ASPART [NOVOLOG] 3 ML PEN SC ×4 (07:59→20:54)
[2018-02-07] MEDS: NEBIVOLOL 5 MG TAB PO ×2 (08:04→20:38)
[2018-02-07] MEDS: CALCIUM CARBONATE 1.25 GM TAB PO (08:04)
[2018-02-07] MEDS: HEPARIN 5,000 UNIT/0.5 ML VIAL SC ×2 (08:04→20:44)
[2018-02-07] MEDS: NIFEdipine (XL) 30 MG TAB PO ×2 (08:05→09:00)
[2018-02-07] MEDS: CLOPIDOGREL 75 MG TAB PO (08:05)
[2018-02-07] MEDS: LORATADINE 10 MG TAB PO (08:05)
[2018-02-07] MEDS: VALSARTAN 160 MG TAB PO ×2 (08:05→20:43)
[2018-02-07] MEDS: NYSTATIN 15 GM OINT TOP ×2 (08:06→20:55)
[2018-02-07] MEDS: OLOPATADINE 0.1% 5 ML OPH BOTH EYES ×2 (08:06→20:38)
[2018-02-07] MEDS ORDERED: NIFEdipine (XL) 60 MG TAB PO (09:00)
[2018-02-07] MEDS ORDERED: CEPASTAT LOZENGE MT (12:30)
[2018-02-07] MEDS ORDERED: DEXTROSE 5%-0.45% NACL 1,000 ML IV (14:00)
[2018-02-07] MEDS: SOD CHLORIDE 0.45% 1,000 ML IV (15:13)
[2018-02-07] MEDS: DOCUSATE SODIUM 100 MG CAP PO (15:13)
[2018-02-07] MEDS: POLYETHYLENE GLYCOL 17 GM PACKET PO (15:13)
[2018-02-07] MEDS: LATANOPROST 0.005% 2.5 ML OPH BOTH EYES (20:37)
[2018-02-07] MEDS: DORZOLAMIDE 2% 10 ML OPH RIGHT EYE (20:39)
[2018-02-07] MEDS: ATORVASTATIN 10 MG TAB PO (20:39)
[2018-02-07] MEDS: DOXAZOSIN 4 MG TAB PO (20:40)
[2018-02-07] MEDS: FAMOTIDINE 20 MG TAB PO (20:43)
[2018-02-08] MEDS: MAGNESIUM HYDROXIDE 30ML CUP PO (06:06)
[2018-02-08] MEDS: LEVOTHYROXINE 50 MCG TAB PO (06:06)
[2018-02-08 06:10] LABS: ADD MAN DIFF? NO
[2018-02-08 06:23] LABS: BASOPHIL # 0.1 10^3/ul (0.0-0.1); BASOPHILS % 0.8 % (0.0-2.0); EOSINOPHILS # 0.3 10^3/ul (0.0-0.5); EOSINOPHILS % 2.5 % (0.0-7.0); HEMATOCRIT 35.8 % (37.0-47.0); HEMOGLOBIN 11.9 g/dl (12.0-16.0); LYMPHOCYTES % 19.9 % (15.0-51.0); MEAN CORPUSCULAR HEMOGLOBIN 31.6 pg (29.0-33.0); MEAN CORPUSCULAR HGB CONC 33.2 g/dl (32.0-37.0); MONOCYTE # 1.1 10^3/ul (0.3-0.9); MONOCYTES % 11.2 % (0.0-11.0); NEUTROPHIL # 6.6 10^3/ul (1.6-7.5); NEUTROPHILS % 64.9 % (39.0-77.0); PLATELET COUNT 306 10^3/UL (140-415); RED BLOOD COUNT 3.77 10^6/ul (4.20-5.40)
[2018-02-08 06:23] LABS: WHITE BLOOD COUNT 10.1 10^3/ul (4.8-10.8)
[2018-02-08 06:33] LABS: ALBUMIN 3.2 g/dl (3.3-4.9); ANION GAP 11 (8-16); BLOOD UREA NITROGEN 32 mg/dl (7-20); CARBON DIOXIDE 28 mmol/L (21-31); CHLORIDE 103 mmol/L (97-110); CREATININE 1.14 mg/dl (0.44-1.00); GLUCOSE 168 mg/dl (70-220); MAGNESIUM 2.2 mg/dl (1.7-2.5); POTASSIUM 3.9 mmol/L (3.5-5.1); SODIUM 138 mmol/L (135-144)
[2018-02-08] MEDS: INSULIN ASPART [NOVOLOG] 3 ML PEN SC ×2 (08:21→12:00)
[2018-02-08] MEDS: HEPARIN 5,000 UNIT/0.5 ML VIAL SC (08:22)
[2018-02-08] MEDS: NEBIVOLOL 5 MG TAB PO (08:24)
[2018-02-08] MEDS: POLYETHYLENE GLYCOL 17 GM PACKET PO (08:24)
[2018-02-08] MEDS: OLOPATADINE 0.1% 5 ML OPH BOTH EYES (08:24)
[2018-02-08] MEDS: LORATADINE 10 MG TAB PO (08:24)
[2018-02-08] MEDS: DORZOLAMIDE 2% 10 ML OPH RIGHT EYE (08:24)
[2018-02-08] MEDS: CALCIUM CARBONATE 1.25 GM TAB PO (08:25)
[2018-02-08] MEDS: CLOPIDOGREL 75 MG TAB PO (08:25)
[2018-02-08] MEDS: VALSARTAN 160 MG TAB PO (08:25)
[2018-02-08] MEDS: NIFEdipine (XL) 30 MG TAB PO (08:28)
[2018-02-08] MEDS: NYSTATIN 15 GM OINT TOP (08:29)
[2018-02-08] MEDS: FUROSEMIDE 20 MG TAB PO (08:29)
[2018-02-08] MEDS ORDERED: NIFEdipine (XL) 60 MG TAB PO (09:00)
[2018-02-08] MEDS: SOD CHLORIDE 0.45% 1,000 ML IV (11:00)
== END 2018-02-08 16:10 | disposition home health service (06) | DRG 193 ==
LOC: E/R 10:49 → PP2 12:44
DX: J18.9 Pneumonia, unspecified organism (principal); I50.33 Acute on chronic diastolic (congestive) heart failure; E87.1 Hypo-osmolality and hyponatremia; N17.9 Acute kidney failure, unspecified; I11.0 Hypertensive heart disease with heart failure; E11.9 Type 2 diabetes mellitus without complications; E87.5 Hyperkalemia; Z90.49 Acquired absence of other specified parts of digestive tract; M81.0 Age-related osteoporosis without current pathological fracture; E03.9 Hypothyroidism, unspecified; I16.0 Hypertensive urgency; I25.10 Atherosclerotic heart disease of native coronary artery without angina pectoris; Z79.4 Long term (current) use of insulin
CPT/HCPCS: 36415; 71045; 80048; 80053; 80061; 80069; 82962; 83036; 83605; 83735; 83880; 84100; 84439; 84443; 84484; 85025; 87040; 94640; 94644; 94664; 96361; 96365; 96375; 97110; 97116; 97163; 97167; 97530; 97535; 99285-25

== ENCOUNTER 2018-02-11 11:45 | Inpatient (IN) | payer OTHER ==
[2018-02-11 12:17] LABS: ADD MAN DIFF? NO
[2018-02-11 12:19] LABS: BASOPHILS % 0.3 % (0.0-2.0); HEMATOCRIT 36.9 % (37.0-47.0); LYMPHOCYTES # 1.1 10^3/ul (0.8-2.9); MEAN CORPUSCULAR HEMOGLOBIN 31.4 pg (29.0-33.0); MEAN CORPUSCULAR HGB CONC 32.5 g/dl (32.0-37.0); MEAN CORPUSCULAR VOLUME 96.6 fl (82.0-101.0); MEAN PLATELET VOLUME 10.9 fl (7.4-10.4); MONOCYTES % 7.2 % (0.0-11.0); NEUTROPHIL # 11.3 10^3/ul (1.6-7.5); NEUTROPHILS % 83.8 % (39.0-77.0); PLATELET COUNT 308 10^3/UL (140-415); RED BLOOD COUNT 3.82 10^6/ul (4.20-5.40); RED CELL DISTRIBUTION WIDTH 14.7 % (11.5-14.5)
[2018-02-11 12:19] LABS: WHITE BLOOD COUNT 13.4 10^3/ul (4.8-10.8)
[2018-02-11] MEDS: SOD CHLORIDE 0.9% 1,000 ML IV ×3 (12:36→15:52)
[2018-02-11 12:39] LABS: INR 0.98; PROTIME 13.1 Sec (11.9-14.9)
[2018-02-11 12:40] LABS: PARTIAL THROMBOPLASTIN TIME 24.7 Sec (25.0-35.0)
[2018-02-11 12:46] LABS: LACTIC ACID 1.6 mmol/L (0.5-2.0)
[2018-02-11 12:46] LABS: ALANINE AMINOTRANSFERASE 109 IU/L (13-69); ALBUMIN 3.7 g/dl (3.3-4.9); ALKALINE PHOSPHATASE 73 IU/L (42-121); ANION GAP 13 (8-16); ASPARTATE AMINO TRANSFERASE 46 IU/L (15-46); BILIRUBIN,INDIRECT 0.4 mg/dl (0-1.1); BILIRUBIN,TOTAL 0.4 mg/dl (0.2-1.3); BLOOD UREA NITROGEN 53 mg/dl (7-20); CARBON DIOXIDE 27 mmol/L (21-31); CHLORIDE 102 mmol/L (97-110); CREATININE 1.87 mg/dl (0.44-1.00); GLUCOSE 241 mg/dl (70-220); POTASSIUM 4.3 mmol/L (3.5-5.1); SODIUM 138 mmol/L (135-144); TOTAL PROTEIN 7.8 g/dl (6.1-8.1)
[2018-02-11 12:56] LABS: CALCIUM 15.8 mg/dl (8.4-10.2)
[2018-02-11 12:57] LABS: TROPONIN-I 0.036 ng/ml (0.000-0.120)
[2018-02-11] MEDS: CEFEPIME 2GM/50 ML (PMX) 50 ML IVPB (13:26)
[2018-02-11] MEDS: VANCOMYCIN 1 GM (PMX) 250 ML IVPB (13:27)
[2018-02-11 13:29] LABS: ADD UMIC YES; UR ASCORBIC ACID 40 mg/dL (NEGATIVE); UR BILIRUBIN (Dip) NEGATIVE (NEGATIVE); UR BLOOD (Dip) NEGATIVE (NEGATIVE); UR CLARITY CLEAR (CLEAR); UR COLOR YELLOW (YELLOW); UR GLUCOSE (Dip) NEGATIVE (NEGATIVE); UR KETONES (Dip) NEGATIVE (NEGATIVE); UR LEUKOCYTE ESTERASE (Dip) NEGATIVE Leu/ul (NEGATIVE); UR NITRITE (Dip) NEGATIVE (NEGATIVE); UR RBC 0 /HPF (0-5); UR SPECIFIC GRAVITY (Dip) 1.012 (1.003-1.030); UR SQUAMOUS EPITHELIAL CELL FEW /HPF (FEW); UR TOTAL PROTEIN (Dip) 1+ mg/dl (NEGATIVE); UR UROBILINOGEN (Dip) NEGATIVE (NEGATIVE); UR WBC 2 /HPF (0-5)
[2018-02-11] MEDS ORDERED: ACETAMINOPHEN 325 MG TAB PO (14:30)
[2018-02-11] MEDS ORDERED: ONDANSETRON 4 MG INJ IV (14:30)
[2018-02-11] MEDS ORDERED: DOCUSATE SODIUM 100 MG CAP PO (15:00)
[2018-02-11] MEDS ORDERED: ZOLPIDEM 5 MG TAB PO (15:00)
[2018-02-11] MEDS ORDERED: IBUPROFEN 600 MG TAB PO (15:00)
[2018-02-11] MEDS ORDERED: NACL 0.9% 3 ML SYG IV (15:00)
[2018-02-11] MEDS ORDERED: GLUCOSE GEL 15 GRAM TUBE BUCCAL (15:30)
[2018-02-11] MEDS ORDERED: GLUCOSE GEL 15 GRAM TUBE PO ×2 (15:30)
[2018-02-11] MEDS ORDERED: DEXTROSE 50% 50 ML SYRINGE IV (15:30)
[2018-02-11] MEDS ORDERED: GLUCAGON 1 MG INJ IM (15:30)
[2018-02-11 16:08] LABS: LACTIC ACID 1.7 mmol/L (0.5-2.0)
[2018-02-11] MEDS: DEXTROSE 50% 50 ML SYRINGE IV (17:19)
[2018-02-11] MEDS: INSULIN ASPART [NOVOLOG] 3 ML PEN SC ×2 (18:05→21:00)
[2018-02-11 19:03] LABS: LACTIC ACID 1.5 mmol/L (0.5-2.0)
[2018-02-11] MEDS: DOXAZOSIN 4 MG TAB PO (20:37)
[2018-02-11] MEDS: ATORVASTATIN 10 MG TAB PO (20:38)
[2018-02-11] MEDS: NEBIVOLOL 5 MG TAB PO (20:38)
[2018-02-11] MEDS: PAMIDRONATE 60 MG in SOD CHLORIDE 0.9% 500 ML IV (20:39)
[2018-02-11] MEDS: CALCITONIN SALMON 400 UNITS INJ SC (20:39)
[2018-02-11] MEDS ORDERED: VALSARTAN 160 MG TAB PO (21:00)
[2018-02-11] MEDS: hydrALAzine 20 MG INJ IV (23:24)
[2018-02-12] MEDS: SOD CHLORIDE 0.9% 1,000 ML IV ×4 (00:40→20:26)
[2018-02-12] MEDS: ACCU-CHEK XX (02:00)
[2018-02-12] MEDS: hydrALAzine 20 MG INJ IV ×3 (04:18→12:57)
[2018-02-12 07:13] LABS: ADD MAN DIFF? NO
[2018-02-12 07:49] LABS: ANION GAP 14 (8-16); BLOOD UREA NITROGEN 43 mg/dl (7-20); CALCIUM 11.4 mg/dl (8.4-10.2); CARBON DIOXIDE 22 mmol/L (21-31); CHLORIDE 110 mmol/L (97-110); CREATININE 1.55 mg/dl (0.44-1.00); GLUCOSE 166 mg/dl (70-220); MAGNESIUM 2.1 mg/dl (1.7-2.5); PHOSPHORUS 3.1 mg/dl (2.5-4.9); POTASSIUM 3.9 mmol/L (3.5-5.1); SODIUM 142 mmol/L (135-144)
[2018-02-12 08:00] LABS: FREE THYROXINE INDEX (Calc) 3.43 ug/ml (0.65-3.89); T3 UPTAKE 44.6 % (23.5-40.5); T4 (THYROXINE) 7.7 ug/dl (5.5-11.0)
[2018-02-12] MEDS: LEVOTHYROXINE 75 MCG TAB PO (08:00)
[2018-02-12 08:15] LABS: THYROID STIMULATING HORMONE 0.972 MIU/L (0.465-4.680)
[2018-02-12] MEDS: LORATADINE 10 MG TAB PO (08:45)
[2018-02-12] MEDS: CLOPIDOGREL 75 MG TAB PO (08:46)
[2018-02-12] MEDS: FUROSEMIDE 20 MG TAB PO (08:47)
[2018-02-12] MEDS: LINAGLIPTIN 5 MG TABLET PO (08:48)
[2018-02-12] MEDS: NEBIVOLOL 5 MG TAB PO ×2 (08:51→20:35)
[2018-02-12] MEDS: AMLODIPINE 10 MG TAB PO (08:55)
[2018-02-12] MEDS: INSULIN ASPART [NOVOLOG] 3 ML PEN SC ×4 (08:59→20:34)
[2018-02-12 09:17] LABS: HEMOGLOBIN A1C 6.4 % (0-5.9)
[2018-02-12 09:32] LABS: BASOPHIL # 0.1 10^3/ul (0.0-0.1); BASOPHILS % 0.4 % (0.0-2.0); EOSINOPHILS % 0.1 % (0.0-7.0); HEMATOCRIT 35.1 % (37.0-47.0); HEMOGLOBIN 11.6 g/dl (12.0-16.0); LYMPHOCYTES # 1.1 10^3/ul (0.8-2.9); LYMPHOCYTES % 6.8 % (15.0-51.0); MEAN CORPUSCULAR HEMOGLOBIN 32.5 pg (29.0-33.0); MEAN CORPUSCULAR VOLUME 98.3 fl (82.0-101.0); MEAN PLATELET VOLUME 11.7 fl (7.4-10.4); MONOCYTES % 6.1 % (0.0-11.0); NEUTROPHIL # 14.4 10^3/ul (1.6-7.5); NEUTROPHILS % 85.9 % (39.0-77.0); PLATELET COUNT 257 10^3/UL (140-415); RED BLOOD COUNT 3.57 10^6/ul (4.20-5.40); RED CELL DISTRIBUTION WIDTH 14.9 % (11.5-14.5)
[2018-02-12 09:32] LABS: WHITE BLOOD COUNT 16.7 10^3/ul (4.8-10.8)
[2018-02-12] MEDS: ISOSORBIDE MONONITRATE(SR)30 MG TAB PO (16:19)
[2018-02-12] MEDS: NATEGLINIDE 120 MG TAB PO (17:15)
[2018-02-12] MEDS: NIFEdipine (XL) 60 MG TAB PO (17:30)
[2018-02-12] MEDS: ATORVASTATIN 10 MG TAB PO (20:27)
[2018-02-12] MEDS: DOXAZOSIN 4 MG TAB PO (20:37)
[2018-02-12] MEDS: CALCITONIN SALMON 400 UNITS INJ SC (22:11)
[2018-02-13 00:02] LABS: PTH CALCIUM 14.6 mg/dL (8.6-10.4)
[2018-02-13] MEDS: hydrALAzine 20 MG INJ IV ×2 (00:20→03:50)
[2018-02-13] MEDS: ACCU-CHEK XX (02:00)
[2018-02-13] MEDS: SOD CHLORIDE 0.9% 1,000 ML IV ×2 (03:43→11:07)
[2018-02-13 04:37] LABS: PROTEIN, TOTAL 6.1 g/dL (6.1-8.1)
[2018-02-13] MEDS: LEVOTHYROXINE 75 MCG TAB PO (05:36)
[2018-02-13 06:10] LABS: ADD MAN DIFF? NO
[2018-02-13 06:26] LABS: BASOPHIL # 0.1 10^3/ul (0.0-0.1); BASOPHILS % 0.5 % (0.0-2.0); EOSINOPHILS # 0.1 10^3/ul (0.0-0.5); EOSINOPHILS % 0.4 % (0.0-7.0); HEMATOCRIT 31.4 % (37.0-47.0); HEMOGLOBIN 10.3 g/dl (12.0-16.0); LYMPHOCYTES # 1.3 10^3/ul (0.8-2.9); LYMPHOCYTES % 9.9 % (15.0-51.0); MEAN CORPUSCULAR HEMOGLOBIN 31.9 pg (29.0-33.0); MEAN CORPUSCULAR HGB CONC 32.8 g/dl (32.0-37.0); MEAN CORPUSCULAR VOLUME 97.2 fl (82.0-101.0); MEAN PLATELET VOLUME 11.3 fl (7.4-10.4); MONOCYTE # 1.3 10^3/ul (0.3-0.9); MONOCYTES % 10.1 % (0.0-11.0); NEUTROPHIL # 10.2 10^3/ul (1.6-7.5); NEUTROPHILS % 78.6 % (39.0-77.0); PLATELET COUNT 228 10^3/UL (140-415); RED BLOOD COUNT 3.23 10^6/ul (4.20-5.40); RED CELL DISTRIBUTION WIDTH 14.6 % (11.5-14.5)
[2018-02-13 06:56] LABS: ANION GAP 10 (8-16); BLOOD UREA NITROGEN 41 mg/dl (7-20); CALCIUM 9.2 mg/dl (8.4-10.2); CARBON DIOXIDE 20 mmol/L (21-31); CHLORIDE 118 mmol/L (97-110); CREATININE 1.48 mg/dl (0.44-1.00); GLUCOSE 206 mg/dl (70-220); POTASSIUM 3.1 mmol/L (3.5-5.1); SODIUM 145 mmol/L (135-144)
[2018-02-13] MEDS: NATEGLINIDE 120 MG TAB PO ×3 (08:32→17:23)
[2018-02-13] MEDS: INSULIN ASPART [NOVOLOG] 3 ML PEN SC ×4 (08:32→20:53)
[2018-02-13] MEDS: LINAGLIPTIN 5 MG TABLET PO (08:51)
[2018-02-13] MEDS: LORATADINE 10 MG TAB PO (08:51)
[2018-02-13] MEDS: NEBIVOLOL 5 MG TAB PO ×2 (08:51→20:52)
[2018-02-13] MEDS: CLOPIDOGREL 75 MG TAB PO (08:51)
[2018-02-13] MEDS: FUROSEMIDE 20 MG TAB PO (08:52)
[2018-02-13] MEDS: AMLODIPINE 10 MG TAB PO (08:52)
[2018-02-13] MEDS: ISOSORBIDE MONONITRATE(SR)30 MG TAB PO (08:53)
[2018-02-13] MEDS: SOD CHLORIDE 0.45% 1,000 ML IV (12:31)
[2018-02-13] MEDS: POTASSIUM CHLORIDE 100 ML IVPB (13:14)
[2018-02-13] MEDS: ATORVASTATIN 10 MG TAB PO (20:51)
[2018-02-13] MEDS: MINOXIDIL 2.5 MG TAB PO (20:52)
[2018-02-13] MEDS: DOXAZOSIN 4 MG TAB PO (20:53)
[2018-02-13] MEDS: NYSTATIN 30 GM POWDER BTL TOP (20:54)
[2018-02-13] MEDS: CALCITONIN SALMON 400 UNITS INJ SC (23:04)
[2018-02-13 23:21] LABS: ABNORMAL PROTEIN BAND 1 0.1 g/dL (NONE DETECTED); ALBUMIN 2.7 g/dL (3.8-4.8); ALPHA-1-GLOBULINS 0.2 g/dL (0.2-0.3); ALPHA-2-GLOBULINS 0.9 g/dL (0.5-0.9); BETA 2 GLOBULINS 0.6 g/dL (0.2-0.5); BETA GLOBULINS 0.4 g/dL (0.4-0.6); GAMMA GLOBULINS 1.4 g/dL (0.8-1.7)
[2018-02-14] MEDS: SOD CHLORIDE 0.45% 1,000 ML IV ×3 (01:06→17:32)
[2018-02-14] MEDS: ACCU-CHEK XX (02:00)
[2018-02-14] MEDS: LEVOTHYROXINE 75 MCG TAB PO (05:45)
[2018-02-14 07:37] LABS: ADD MAN DIFF? NO
[2018-02-14 07:39] LABS: WHITE BLOOD COUNT 11.5 10^3/ul (4.8-10.8)
[2018-02-14 07:39] LABS: BASOPHIL # 0.1 10^3/ul (0.0-0.1); BASOPHILS % 0.8 % (0.0-2.0); EOSINOPHILS # 0.3 10^3/ul (0.0-0.5); EOSINOPHILS % 2.4 % (0.0-7.0); HEMATOCRIT 29.1 % (37.0-47.0); HEMOGLOBIN 9.7 g/dl (12.0-16.0); LYMPHOCYTES # 1.8 10^3/ul (0.8-2.9); LYMPHOCYTES % 15.3 % (15.0-51.0); MEAN CORPUSCULAR HEMOGLOBIN 32.3 pg (29.0-33.0); MEAN CORPUSCULAR HGB CONC 33.3 g/dl (32.0-37.0); MEAN PLATELET VOLUME 11.8 fl (7.4-10.4); MONOCYTE # 1.2 10^3/ul (0.3-0.9); MONOCYTES % 10.5 % (0.0-11.0); NEUTROPHIL # 8.1 10^3/ul (1.6-7.5); NEUTROPHILS % 70.5 % (39.0-77.0); PLATELET COUNT 190 10^3/UL (140-415); RED CELL DISTRIBUTION WIDTH 14.6 % (11.5-14.5)
[2018-02-14] MEDS: INSULIN ASPART [NOVOLOG] 3 ML PEN SC ×4 (07:52→21:26)
[2018-02-14] MEDS: NATEGLINIDE 120 MG TAB PO ×3 (07:52→17:26)
[2018-02-14 08:03] LABS: ANION GAP 10 (8-16); BLOOD UREA NITROGEN 34 mg/dl (7-20); CARBON DIOXIDE 19 mmol/L (21-31); CHLORIDE 114 mmol/L (97-110); CREATININE 1.26 mg/dl (0.44-1.00); GLUCOSE 129 mg/dl (70-220); SODIUM 140 mmol/L (135-144)
[2018-02-14] MEDS: AMLODIPINE 10 MG TAB PO (08:43)
[2018-02-14] MEDS: LINAGLIPTIN 5 MG TABLET PO (08:43)
[2018-02-14] MEDS: CLOPIDOGREL 75 MG TAB PO (08:43)
[2018-02-14] MEDS: LORATADINE 10 MG TAB PO (08:43)
[2018-02-14] MEDS: ISOSORBIDE MONONITRATE(SR)30 MG TAB PO (08:44)
[2018-02-14] MEDS: MINOXIDIL 2.5 MG TAB PO ×2 (08:44→21:00)
[2018-02-14] MEDS: NEBIVOLOL 5 MG TAB PO ×2 (08:44→21:00)
[2018-02-14] MEDS: FUROSEMIDE 20 MG TAB PO (08:45)
[2018-02-14] MEDS: NYSTATIN 30 GM POWDER BTL TOP ×2 (08:45→21:25)
[2018-02-14] MEDS: POTASSIUM CHLORIDE 100 ML IVPB ×2 (10:37→12:43)
[2018-02-14] MEDS: MAGNESIUM SULFATE 1 GM/D5W 100 ML IVPB (18:29)
[2018-02-14 19:28] LABS: CREATINE KINASE 34 IU/L (23-200)
[2018-02-14 19:41] LABS: CK INDEX 1.9; CK-MB 0.63 ng/ml (0.0-2.4); TROPONIN-I 0.035 ng/ml (0.000-0.120)
[2018-02-14] MEDS: CALCITONIN SALMON 400 UNITS INJ SC (21:00)
[2018-02-14] MEDS: DOXAZOSIN 4 MG TAB PO (21:00)
[2018-02-14] MEDS: ATORVASTATIN 10 MG TAB PO (21:24)
[2018-02-14] MEDS: HYDROCODONE/APAP (5/325) TAB PO (22:09)
[2018-02-15 01:42] LABS: CREATINE KINASE 51 IU/L (23-200)
[2018-02-15 01:54] LABS: CK-MB 1.01 ng/ml (0.0-2.4); TROPONIN-I 0.044 ng/ml (0.000-0.120)
[2018-02-15] MEDS: ACCU-CHEK XX (02:21)
[2018-02-15] MEDS: SOD CHLORIDE 0.45% 1,000 ML IV ×3 (04:42→17:26)
[2018-02-15] MEDS: LEVOTHYROXINE 75 MCG TAB PO (05:45)
[2018-02-15 07:04] LABS: ADD MAN DIFF? NO
[2018-02-15 07:10] LABS: WHITE BLOOD COUNT 11.3 10^3/ul (4.8-10.8)
[2018-02-15 07:10] LABS: BASOPHILS % 0.4 % (0.0-2.0); EOSINOPHILS # 0.3 10^3/ul (0.0-0.5); HEMATOCRIT 28.6 % (37.0-47.0); HEMOGLOBIN 9.6 g/dl (12.0-16.0); LYMPHOCYTES # 2.1 10^3/ul (0.8-2.9); LYMPHOCYTES % 18.5 % (15.0-51.0); MEAN CORPUSCULAR HGB CONC 33.6 g/dl (32.0-37.0); MEAN CORPUSCULAR VOLUME 95.3 fl (82.0-101.0); MEAN PLATELET VOLUME 12.2 fl (7.4-10.4); MONOCYTE # 1.2 10^3/ul (0.3-0.9); MONOCYTES % 10.4 % (0.0-11.0); NEUTROPHIL # 7.6 10^3/ul (1.6-7.5); NEUTROPHILS % 67.3 % (39.0-77.0); PLATELET COUNT 190 10^3/UL (140-415); RED CELL DISTRIBUTION WIDTH 14.3 % (11.5-14.5)
[2018-02-15 07:38] LABS: ANION GAP 14 (8-16); BLOOD UREA NITROGEN 46 mg/dl (7-20); CALCIUM 7.8 mg/dl (8.4-10.2); CARBON DIOXIDE 20 mmol/L (21-31); CHLORIDE 107 mmol/L (97-110); CREATININE 1.71 mg/dl (0.44-1.00); GLUCOSE 131 mg/dl (70-220); MAGNESIUM 2.2 mg/dl (1.7-2.5); POTASSIUM 3.7 mmol/L (3.5-5.1); SODIUM 137 mmol/L (135-144)
[2018-02-15] MEDS: INSULIN ASPART [NOVOLOG] 3 ML PEN SC ×4 (08:00→20:41)
[2018-02-15] MEDS: NEBIVOLOL 5 MG TAB PO ×2 (08:20→20:36)
[2018-02-15] MEDS: MINOXIDIL 2.5 MG TAB PO ×2 (08:20→21:00)
[2018-02-15] MEDS: FUROSEMIDE 20 MG TAB PO (08:21)
[2018-02-15] MEDS: AMLODIPINE 10 MG TAB PO (08:21)
[2018-02-15] MEDS: NATEGLINIDE 120 MG TAB PO ×3 (08:21→17:22)
[2018-02-15] MEDS: LORATADINE 10 MG TAB PO (08:21)
[2018-02-15] MEDS: ISOSORBIDE MONONITRATE(SR)30 MG TAB PO (08:21)
[2018-02-15] MEDS: LINAGLIPTIN 5 MG TABLET PO (08:21)
[2018-02-15] MEDS: CLOPIDOGREL 75 MG TAB PO (08:21)
[2018-02-15] MEDS: NYSTATIN 30 GM POWDER BTL TOP ×2 (08:22→20:42)
[2018-02-15 08:32] LABS: IONIZED CALCIUM 1.2 mmol/L (1.1-1.4)
[2018-02-15 12:01] LABS: PTH INTACT 10 pg/mL (14-64)
[2018-02-15] MEDS ORDERED: VITAMIN A & D 5 GM OINT PACKET TOP (15:35)
[2018-02-15 16:31] LABS: CREATININE, RANDOM URINE 34 mg/dL (20-320); PROTEIN/CREATININE RATIO 882 mg/g creat (21-161)
[2018-02-15 18:46] LABS: PTH CALCIUM 10.9 mg/dL (8.6-10.4)
[2018-02-15] MEDS: ATORVASTATIN 10 MG TAB PO (20:35)
[2018-02-15] MEDS: DOXAZOSIN 4 MG TAB PO (20:54)
[2018-02-15] MEDS: POTASSIUM CHLORIDE 100 ML IVPB (23:50)
[2018-02-16] MEDS: ACCU-CHEK XX (02:00)
[2018-02-16] MEDS: LEVOTHYROXINE 75 MCG TAB PO (06:12)
[2018-02-16 06:59] LABS: ADD MAN DIFF? NO
[2018-02-16 07:10] LABS: WHITE BLOOD COUNT 11.7 10^3/ul (4.8-10.8)
[2018-02-16 07:10] LABS: BASOPHIL # 0.1 10^3/ul (0.0-0.1); BASOPHILS % 0.4 % (0.0-2.0); EOSINOPHILS # 0.4 10^3/ul (0.0-0.5); EOSINOPHILS % 3.5 % (0.0-7.0); HEMATOCRIT 29.2 % (37.0-47.0); HEMOGLOBIN 9.9 g/dl (12.0-16.0); LYMPHOCYTES # 2.1 10^3/ul (0.8-2.9); LYMPHOCYTES % 17.7 % (15.0-51.0); MEAN CORPUSCULAR HEMOGLOBIN 32.2 pg (29.0-33.0); MEAN CORPUSCULAR HGB CONC 33.9 g/dl (32.0-37.0); MEAN CORPUSCULAR VOLUME 95.1 fl (82.0-101.0); MEAN PLATELET VOLUME 12.3 fl (7.4-10.4); MONOCYTE # 1.3 10^3/ul (0.3-0.9); MONOCYTES % 11.1 % (0.0-11.0); NEUTROPHIL # 7.8 10^3/ul (1.6-7.5); PLATELET COUNT 218 10^3/UL (140-415); RED BLOOD COUNT 3.07 10^6/ul (4.20-5.40); RED CELL DISTRIBUTION WIDTH 14.3 % (11.5-14.5)
[2018-02-16 07:27] LABS: ALBUMIN 2.7 g/dl (3.3-4.9); ANION GAP 13 (8-16); BLOOD UREA NITROGEN 45 mg/dl (7-20); CALCIUM 7.7 mg/dl (8.4-10.2); CARBON DIOXIDE 17 mmol/L (21-31); CHLORIDE 111 mmol/L (97-110); CREATININE 1.64 mg/dl (0.44-1.00); GLUCOSE 117 mg/dl (70-220); MAGNESIUM 2.2 mg/dl (1.7-2.5); PHOSPHORUS 2.5 mg/dl (2.5-4.9); POTASSIUM 4.1 mmol/L (3.5-5.1); SODIUM 137 mmol/L (135-144)
[2018-02-16] MEDS: INSULIN ASPART [NOVOLOG] 3 ML PEN SC ×4 (08:00→20:09)
[2018-02-16 09:06] LABS: PTH INTACT 16 pg/mL (14-64)
[2018-02-16] MEDS: ISOSORBIDE MONONITRATE(SR)30 MG TAB PO (09:11)
[2018-02-16] MEDS: NATEGLINIDE 120 MG TAB PO ×3 (09:11→18:07)
[2018-02-16] MEDS: NEBIVOLOL 5 MG TAB PO ×2 (09:12→20:06)
[2018-02-16] MEDS: LINAGLIPTIN 5 MG TABLET PO (09:12)
[2018-02-16] MEDS: LORATADINE 10 MG TAB PO (09:13)
[2018-02-16] MEDS: CLOPIDOGREL 75 MG TAB PO (09:13)
[2018-02-16] MEDS: FUROSEMIDE 20 MG TAB PO (09:13)
[2018-02-16] MEDS: AMLODIPINE 10 MG TAB PO (09:13)
[2018-02-16] MEDS: NYSTATIN 30 GM POWDER BTL TOP ×2 (09:14→20:10)
[2018-02-16] MEDS: MINOXIDIL 2.5 MG TAB PO ×2 (09:14→20:06)
[2018-02-16] MEDS: SOD CHLORIDE 0.45% 1,000 ML IV ×2 (10:40→20:02)
[2018-02-16 14:55] LABS: IMMUNOGLOBULIN A 464 mg/dl (70-400)
[2018-02-16 14:55] LABS: IMMUNOGLOBULIN G 1018 mg/dl (700-1600); IMMUNOGLOBULIN M 55 mg/dl (40-230)
[2018-02-16 16:29] LABS: IRON 22 ug/dl (35-150)
[2018-02-16 16:38] LABS: % IRON SATURATION 10 % SAT (22-52); TOTAL IRON BINDING CAPACITY 218 ug/dl (241-421)
[2018-02-16] MEDS: ATORVASTATIN 10 MG TAB PO (20:03)
[2018-02-16] MEDS: DOXAZOSIN 4 MG TAB PO (20:09)
[2018-02-17] MEDS: ACCU-CHEK XX (02:00)
[2018-02-17] MEDS: LEVOTHYROXINE 75 MCG TAB PO (05:58)
[2018-02-17] MEDS: SOD CHLORIDE 0.45% 1,000 ML IV ×3 (06:21→20:55)
[2018-02-17] MEDS: INSULIN ASPART [NOVOLOG] 3 ML PEN SC ×4 (07:58→20:57)
[2018-02-17] MEDS: NATEGLINIDE 120 MG TAB PO ×3 (08:02→17:40)
[2018-02-17] MEDS: MINOXIDIL 2.5 MG TAB PO ×2 (08:31→21:02)
[2018-02-17] MEDS: LORATADINE 10 MG TAB PO (08:55)
[2018-02-17] MEDS: CLOPIDOGREL 75 MG TAB PO (08:55)
[2018-02-17] MEDS: AMLODIPINE 10 MG TAB PO (08:55)
[2018-02-17] MEDS: FUROSEMIDE 20 MG TAB PO (08:56)
[2018-02-17] MEDS: ISOSORBIDE MONONITRATE(SR)30 MG TAB PO (08:56)
[2018-02-17] MEDS: LINAGLIPTIN 5 MG TABLET PO (08:56)
[2018-02-17] MEDS: NEBIVOLOL 5 MG TAB PO ×2 (08:57→21:01)
[2018-02-17] MEDS: NYSTATIN 30 GM POWDER BTL TOP ×2 (08:58→20:56)
[2018-02-17 09:20] LABS: ADD MAN DIFF? NO
[2018-02-17 09:31] LABS: BASOPHILS % 0.5 % (0.0-2.0); EOSINOPHILS # 0.4 10^3/ul (0.0-0.5); EOSINOPHILS % 4.3 % (0.0-7.0); HEMATOCRIT 26.5 % (37.0-47.0); HEMOGLOBIN 8.8 g/dl (12.0-16.0); LYMPHOCYTES # 1.6 10^3/ul (0.8-2.9); LYMPHOCYTES % 18.6 % (15.0-51.0); MEAN CORPUSCULAR HEMOGLOBIN 32.1 pg (29.0-33.0); MEAN CORPUSCULAR HGB CONC 33.2 g/dl (32.0-37.0); MEAN CORPUSCULAR VOLUME 96.7 fl (82.0-101.0); MEAN PLATELET VOLUME 12.5 fl (7.4-10.4); MONOCYTES % 11.7 % (0.0-11.0); NEUTROPHIL # 5.5 10^3/ul (1.6-7.5); NEUTROPHILS % 64.7 % (39.0-77.0); PLATELET COUNT 177 10^3/UL (140-415); RED BLOOD COUNT 2.74 10^6/ul (4.20-5.40); RED CELL DISTRIBUTION WIDTH 14.6 % (11.5-14.5)
[2018-02-17 09:31] LABS: WHITE BLOOD COUNT 8.4 10^3/ul (4.8-10.8)
[2018-02-17 09:50] LABS: ALBUMIN 2.6 g/dl (3.3-4.9); ANION GAP 15 (8-16); BLOOD UREA NITROGEN 38 mg/dl (7-20); CALCIUM 7.2 mg/dl (8.4-10.2); CARBON DIOXIDE 17 mmol/L (21-31); CHLORIDE 111 mmol/L (97-110); CREATININE 1.37 mg/dl (0.44-1.00); GLUCOSE 117 mg/dl (70-220); MAGNESIUM 2.1 mg/dl (1.7-2.5); PHOSPHORUS 2.8 mg/dl (2.5-4.9); POTASSIUM 3.6 mmol/L (3.5-5.1); SODIUM 139 mmol/L (135-144)
[2018-02-17 16:11] LABS: BETA-2 MICROGLOBULIN 6.37 mg/L (< OR = 2.51)
[2018-02-17] MEDS: SOD FERRIC GLUC COMPLX 125 MG in SOD CHLORIDE 0.9% 100 ML IVPB (17:41)
[2018-02-17] MEDS: POTASSIUM CHLORIDE 20 MEQ POWDER FOR ORAL SOLN PO (17:41)
[2018-02-17] MEDS: ATORVASTATIN 10 MG TAB PO (20:57)
[2018-02-17] MEDS: DOXAZOSIN 2 MG TAB PO (21:00)
[2018-02-18] MEDS: ACCU-CHEK XX (02:10)
[2018-02-18] MEDS: SOD CHLORIDE 0.45% 1,000 ML IV ×3 (02:30→23:44)
[2018-02-18] MEDS: LEVOTHYROXINE 75 MCG TAB PO (07:00)
[2018-02-18] MEDS: NATEGLINIDE 120 MG TAB PO ×3 (07:49→17:26)
[2018-02-18] MEDS: INSULIN ASPART [NOVOLOG] 3 ML PEN SC ×4 (07:49→21:00)
[2018-02-18] MEDS: POTASSIUM CHLORIDE 20 MEQ POWDER FOR ORAL SOLN PO (08:23)
[2018-02-18] MEDS: LORATADINE 10 MG TAB PO (08:23)
[2018-02-18] MEDS: CLOPIDOGREL 75 MG TAB PO (08:24)
[2018-02-18] MEDS: MINOXIDIL 2.5 MG TAB PO ×2 (08:24→21:09)
[2018-02-18] MEDS: NEBIVOLOL 5 MG TAB PO ×2 (08:25→21:21)
[2018-02-18] MEDS: FUROSEMIDE 20 MG TAB PO ×2 (08:25→17:26)
[2018-02-18] MEDS: AMLODIPINE 10 MG TAB PO (08:25)
[2018-02-18] MEDS: CHOLECALCIFEROL 1,000 UNIT TAB PO (08:26)
[2018-02-18 08:27] LABS: ADD MAN DIFF? NO
[2018-02-18] MEDS: ISOSORBIDE MONONITRATE(SR)30 MG TAB PO (08:27)
[2018-02-18] MEDS: NYSTATIN 30 GM POWDER BTL TOP ×2 (08:29→21:10)
[2018-02-18 08:32] LABS: BASOPHIL # 0.1 10^3/ul (0.0-0.1); BASOPHILS % 0.6 % (0.0-2.0); EOSINOPHILS # 0.3 10^3/ul (0.0-0.5); EOSINOPHILS % 3.2 % (0.0-7.0); HEMATOCRIT 26.6 % (37.0-47.0); HEMOGLOBIN 8.7 g/dl (12.0-16.0); LYMPHOCYTES # 1.4 10^3/ul (0.8-2.9); LYMPHOCYTES % 12.9 % (15.0-51.0); MEAN CORPUSCULAR HEMOGLOBIN 31.8 pg (29.0-33.0); MEAN CORPUSCULAR HGB CONC 32.7 g/dl (32.0-37.0); MEAN CORPUSCULAR VOLUME 97.1 fl (82.0-101.0); MEAN PLATELET VOLUME 12.4 fl (7.4-10.4); MONOCYTE # 1.2 10^3/ul (0.3-0.9); NEUTROPHIL # 7.6 10^3/ul (1.6-7.5); NEUTROPHILS % 71.7 % (39.0-77.0); PLATELET COUNT 191 10^3/UL (140-415); RED BLOOD COUNT 2.74 10^6/ul (4.20-5.40)
[2018-02-18 08:32] LABS: WHITE BLOOD COUNT 10.6 10^3/ul (4.8-10.8)
[2018-02-18] MEDS: LINAGLIPTIN 5 MG TABLET PO (08:37)
[2018-02-18 08:53] LABS: ALBUMIN 2.8 g/dl (3.3-4.9); ANION GAP 17 (8-16); BLOOD UREA NITROGEN 31 mg/dl (7-20); CALCIUM 7.5 mg/dl (8.4-10.2); CARBON DIOXIDE 16 mmol/L (21-31); CHLORIDE 112 mmol/L (97-110); CREATININE 1.23 mg/dl (0.44-1.00); GLUCOSE 129 mg/dl (70-220); MAGNESIUM 1.9 mg/dl (1.7-2.5); PHOSPHORUS 2.9 mg/dl (2.5-4.9); POTASSIUM 4.7 mmol/L (3.5-5.1); SODIUM 140 mmol/L (135-144)
[2018-02-18 09:11] LABS: IMMUNOGLOBULIN E 256 kU/L (<OR=114)
[2018-02-18] MEDS: ALBUTEROL 0.083% (NEB) 2.5 MG/3 ML AMP HHN ×2 (14:04→21:32)
[2018-02-18] MEDS: NA BICARBONATE 650 MG TAB PO ×2 (14:39→21:08)
[2018-02-18] MEDS: SOD FERRIC GLUC COMPLX 125 MG in SOD CHLORIDE 0.9% 100 ML IVPB (17:26)
[2018-02-18] MEDS: ATORVASTATIN 10 MG TAB PO (21:08)
[2018-02-18] MEDS: DOXAZOSIN 2 MG TAB PO (21:09)
[2018-02-19] MEDS: ALBUTEROL 0.083% (NEB) 2.5 MG/3 ML AMP HHN ×2 (02:16→19:25)
[2018-02-19 02:42] LABS: AADO2 Arterial 131.1 mmHg (7.0-24.0); Allen Test ACCEPTAB; Arterial Base Excess -10.2 mmol/L (-3.0-3); Arterial Blood Gas Oxygen Sat 97.6 mmHG (95.0-100.0); Arterial COHb 0.3 % (0.0-3.0); Arterial Fraction of Oxyhgb 97.1 % (93.0-99.0); Arterial MetHb 0.2 % (0.0-1.5); Arterial Total Hemglobin 9.5 g/dl (12.0-18.0); Arterial pCO2 21.5 mmhg (35-45); MODE NASAL CANNULA; Site Right Radial
[2018-02-19] MEDS: FUROSEMIDE 40 MG INJ IV (02:52)
[2018-02-19] MEDS: FUROSEMIDE 20 MG TAB PO ×2 (06:10→17:57)
[2018-02-19] MEDS: LEVOTHYROXINE 75 MCG TAB PO (06:10)
[2018-02-19] MEDS ORDERED: PIPER-TAZO 3.375 GM IV (PMX) 100 ML IVPB (08:00)
[2018-02-19] MEDS: NATEGLINIDE 120 MG TAB PO ×3 (09:08→17:57)
[2018-02-19] MEDS: CLOPIDOGREL 75 MG TAB PO (09:09)
[2018-02-19] MEDS: NA BICARBONATE 650 MG TAB PO ×2 (09:09→21:31)
[2018-02-19] MEDS: MINOXIDIL 2.5 MG TAB PO ×2 (09:10→21:00)
[2018-02-19] MEDS: CHOLECALCIFEROL 1,000 UNIT TAB PO (09:10)
[2018-02-19] MEDS: LORATADINE 10 MG TAB PO (09:12)
[2018-02-19] MEDS: AMLODIPINE 10 MG TAB PO (09:13)
[2018-02-19] MEDS: ISOSORBIDE MONONITRATE(SR)30 MG TAB PO (09:13)
[2018-02-19] MEDS: INSULIN ASPART [NOVOLOG] 3 ML PEN SC ×4 (09:17→21:00)
[2018-02-19] MEDS: NEBIVOLOL 5 MG TAB PO ×2 (09:18→21:33)
[2018-02-19] MEDS: LINAGLIPTIN 5 MG TABLET PO (09:19)
[2018-02-19] MEDS: PIPER-TAZO 2.25 GM (PMX) 50 ML IVPB ×3 (10:40→22:28)
[2018-02-19 12:02] LABS: ALBUMIN 2.8 g/dl (3.3-4.9); ANION GAP 15 (8-16); BLOOD UREA NITROGEN 31 mg/dl (7-20); CALCIUM 7.5 mg/dl (8.4-10.2); CARBON DIOXIDE 17 mmol/L (21-31); CHLORIDE 112 mmol/L (97-110); CREATININE 1.31 mg/dl (0.44-1.00); GLUCOSE 162 mg/dl (70-220); PHOSPHORUS 3.6 mg/dl (2.5-4.9); POTASSIUM 4.8 mmol/L (3.5-5.1); SODIUM 139 mmol/L (135-144)
[2018-02-19] MEDS: NYSTATIN 30 GM POWDER BTL TOP ×2 (13:00→21:37)
[2018-02-19] MEDS: HYDROCODONE/APAP (5/325) TAB PO (13:35)
[2018-02-19] MEDS: LINEZOLID 600 MG/D5W (PMX) 300 ML IVPB ×2 (15:12→23:34)
[2018-02-19] MEDS: ONDANSETRON 4 MG INJ IV (16:48)
[2018-02-19] MEDS: SOD FERRIC GLUC COMPLX 125 MG in SOD CHLORIDE 0.9% 100 ML IVPB (17:58)
[2018-02-19 20:17] LABS: IMMUNOGLOBULIN D 250 mg/L (<179)
[2018-02-19] MEDS: DOXAZOSIN 2 MG TAB PO (21:00)
[2018-02-19] MEDS: ATORVASTATIN 10 MG TAB PO (21:30)
[2018-02-20] MEDS: ONDANSETRON 4 MG INJ IV ×2 (01:09→11:51)
[2018-02-20] MEDS: MAGNESIUM HYDROXIDE 30ML CUP PO (03:12)
[2018-02-20] MEDS: morphine 2 MG INJ IV (04:03)
[2018-02-20] MEDS: FUROSEMIDE 20 MG TAB PO ×2 (05:57→17:29)
[2018-02-20] MEDS: PIPER-TAZO 2.25 GM (PMX) 50 ML IVPB ×3 (05:58→21:03)
[2018-02-20] MEDS: LEVOTHYROXINE 75 MCG TAB PO (06:01)
[2018-02-20 07:28] LABS: ADD MAN DIFF? NO
[2018-02-20 07:31] LABS: ABNORMAL IP MESSAGE 1; BASOPHILS % 0.2 % (0.0-2.0); EOSINOPHILS % 0.2 % (0.0-7.0); HEMATOCRIT 26.5 % (37.0-47.0); HEMOGLOBIN 8.7 g/dl (12.0-16.0); LYMPHOCYTES # 1.1 10^3/ul (0.8-2.9); LYMPHOCYTES % 7.6 % (15.0-51.0); MEAN CORPUSCULAR HEMOGLOBIN 32.1 pg (29.0-33.0); MEAN CORPUSCULAR HGB CONC 32.8 g/dl (32.0-37.0); MEAN CORPUSCULAR VOLUME 97.8 fl (82.0-101.0); MEAN PLATELET VOLUME 12.9 fl (7.4-10.4); MONOCYTE # 1.5 10^3/ul (0.3-0.9); MONOCYTES % 10.8 % (0.0-11.0); NEUTROPHIL # 11.1 10^3/ul (1.6-7.5); NEUTROPHILS % 79.9 % (39.0-77.0); NUCLEATED RED BLOOD CELLS% 0.2 /100WBC (0.0-0.0); PLATELET COUNT 244 10^3/UL (140-415); RED BLOOD COUNT 2.71 10^6/ul (4.20-5.40); RED CELL DISTRIBUTION WIDTH 15.3 % (11.5-14.5)
[2018-02-20 07:31] LABS: WHITE BLOOD COUNT 13.9 10^3/ul (4.8-10.8)
[2018-02-20 07:32] LABS: POSITIVE DIFF @See below
[2018-02-20 07:48] LABS: ALBUMIN 3.2 g/dl (3.3-4.9); ANION GAP 19 (8-16); BLOOD UREA NITROGEN 36 mg/dl (7-20); CALCIUM 7.2 mg/dl (8.4-10.2); CARBON DIOXIDE 16 mmol/L (21-31); CHLORIDE 107 mmol/L (97-110); CREATININE 1.55 mg/dl (0.44-1.00); GLUCOSE 131 mg/dl (70-220); PHOSPHORUS 3.3 mg/dl (2.5-4.9); POTASSIUM 4.7 mmol/L (3.5-5.1); SODIUM 137 mmol/L (135-144)
[2018-02-20] MEDS: INSULIN ASPART [NOVOLOG] 3 ML PEN SC ×4 (08:05→20:54)
[2018-02-20] MEDS: CLOPIDOGREL 75 MG TAB PO (08:07)
[2018-02-20] MEDS: NA BICARBONATE 650 MG TAB PO ×2 (08:08→20:52)
[2018-02-20] MEDS: LINAGLIPTIN 5 MG TABLET PO (08:08)
[2018-02-20] MEDS: CHOLECALCIFEROL 1,000 UNIT TAB PO (08:08)
[2018-02-20] MEDS: NYSTATIN 30 GM POWDER BTL TOP ×2 (08:09→20:54)
[2018-02-20] MEDS: LORATADINE 10 MG TAB PO (08:09)
[2018-02-20] MEDS: NATEGLINIDE 120 MG TAB PO ×3 (08:20→17:29)
[2018-02-20] MEDS: MINOXIDIL 2.5 MG TAB PO ×2 (08:21→20:53)
[2018-02-20] MEDS: ISOSORBIDE MONONITRATE(SR)30 MG TAB PO (08:22)
[2018-02-20] MEDS: NEBIVOLOL 5 MG TAB PO ×2 (08:22→20:52)
[2018-02-20] MEDS: AMLODIPINE 10 MG TAB PO (08:23)
[2018-02-20] MEDS: LINEZOLID 600 MG/D5W (PMX) 300 ML IVPB (10:08)
[2018-02-20] MEDS: ACETAMINOPHEN 325 MG TAB PO (11:54)
[2018-02-20] MEDS: ALBUTEROL 0.083% (NEB) 2.5 MG/3 ML AMP HHN ×2 (13:26→19:35)
[2018-02-20 16:01] LABS: INR 1.43; PROTIME 17.7 Sec (11.9-14.9); PT RATIO 1.4
[2018-02-20] MEDS: SOD FERRIC GLUC COMPLX 125 MG in SOD CHLORIDE 0.9% 100 ML IVPB (17:28)
[2018-02-20] MEDS: morphine LIQ (10 MG/5 ML) CUP PO (20:50)
[2018-02-20] MEDS: ATORVASTATIN 10 MG TAB PO (20:52)
[2018-02-20] MEDS: DOXAZOSIN 2 MG TAB PO (20:58)
[2018-02-21] MEDS: PIPER-TAZO 2.25 GM (PMX) 50 ML IVPB ×3 (05:37→20:50)
[2018-02-21] MEDS: FUROSEMIDE 20 MG TAB PO ×2 (05:37→17:21)
[2018-02-21] MEDS: LEVOTHYROXINE 75 MCG TAB PO (06:05)
[2018-02-21 06:55] LABS: ADD MAN DIFF? NO
[2018-02-21 07:01] LABS: ABNORMAL IP MESSAGE 1; BASOPHILS % 0.2 % (0.0-2.0); EOSINOPHILS # 0.1 10^3/ul (0.0-0.5); EOSINOPHILS % 0.7 % (0.0-7.0); HEMATOCRIT 24.7 % (37.0-47.0); LYMPHOCYTES % 6.9 % (15.0-51.0); MEAN CORPUSCULAR HEMOGLOBIN 31.9 pg (29.0-33.0); MEAN CORPUSCULAR HGB CONC 32.4 g/dl (32.0-37.0); MEAN CORPUSCULAR VOLUME 98.4 fl (82.0-101.0); MEAN PLATELET VOLUME 12.5 fl (7.4-10.4); MONOCYTES % 13.2 % (0.0-11.0); NEUTROPHIL # 11.7 10^3/ul (1.6-7.5); NEUTROPHILS % 77.9 % (39.0-77.0); PLATELET COUNT 217 10^3/UL (140-415); RED BLOOD COUNT 2.51 10^6/ul (4.20-5.40); RED CELL DISTRIBUTION WIDTH 15.2 % (11.5-14.5)
[2018-02-21 07:01] LABS: WHITE BLOOD COUNT 15.1 10^3/ul (4.8-10.8)
[2018-02-21 07:06] LABS: POSITIVE DIFF @See below
[2018-02-21 07:29] LABS: ALBUMIN 2.9 g/dl (3.3-4.9); ANION GAP 18 (8-16); BLOOD UREA NITROGEN 41 mg/dl (7-20); CARBON DIOXIDE 19 mmol/L (21-31); CHLORIDE 106 mmol/L (97-110); CREATININE 1.96 mg/dl (0.44-1.00); GLUCOSE 111 mg/dl (70-220); MAGNESIUM 2.2 mg/dl (1.7-2.5); PHOSPHORUS 3.6 mg/dl (2.5-4.9); POTASSIUM 4.5 mmol/L (3.5-5.1); SODIUM 138 mmol/L (135-144)
[2018-02-21] MEDS: ALBUTEROL 0.083% (NEB) 2.5 MG/3 ML AMP HHN ×3 (07:29→19:23)
[2018-02-21] MEDS: INSULIN ASPART [NOVOLOG] 3 ML PEN SC ×4 (08:00→20:49)
[2018-02-21] MEDS: NATEGLINIDE 120 MG TAB PO ×3 (08:29→17:21)
[2018-02-21] MEDS: NEBIVOLOL 5 MG TAB PO ×2 (08:30→20:52)
[2018-02-21 08:31] LABS: AADO2 Arterial 150.2 mmHg (7.0-24.0); Allen Test ACCEPTAB; Arterial Base Excess -7.5 mmol/L (-3.0-3); Arterial Blood Gas Oxygen Sat 94.1 mmHG (95.0-100.0); Arterial COHb 0.2 % (0.0-3.0); Arterial Fraction of Oxyhgb 93.6 % (93.0-99.0); Arterial HCO3 17.2 mmol/L (22.0-26.0); Arterial MetHb 0.3 % (0.0-1.5); Arterial Total Hemglobin 9.7 g/dl (12.0-18.0); Arterial pCO2 31.7 mmhg (35-45); MODE NASAL CANNULA; Site Right Radial
[2018-02-21] MEDS: CHOLECALCIFEROL 1,000 UNIT TAB PO (08:31)
[2018-02-21] MEDS: NA BICARBONATE 650 MG TAB PO ×2 (08:32→20:50)
[2018-02-21] MEDS: ISOSORBIDE MONONITRATE(SR)30 MG TAB PO (08:32)
[2018-02-21] MEDS: LINAGLIPTIN 5 MG TABLET PO (08:32)
[2018-02-21] MEDS: AMLODIPINE 10 MG TAB PO (08:32)
[2018-02-21] MEDS: LORATADINE 10 MG TAB PO (08:33)
[2018-02-21] MEDS: CLOPIDOGREL 75 MG TAB PO (08:33)
[2018-02-21] MEDS: NYSTATIN 30 GM POWDER BTL TOP ×2 (08:34→20:52)
[2018-02-21] MEDS: MINOXIDIL 2.5 MG TAB PO ×2 (08:38→20:50)
[2018-02-21] MEDS: SOD FERRIC GLUC COMPLX 125 MG in SOD CHLORIDE 0.9% 100 ML IVPB (17:16)
[2018-02-21] MEDS: DOXAZOSIN 2 MG TAB PO (20:51)
[2018-02-21] MEDS: ATORVASTATIN 10 MG TAB PO (20:51)
[2018-02-21] MEDS: ONDANSETRON 4 MG INJ IV (20:59)
[2018-02-22] MEDS: PIPER-TAZO 2.25 GM (PMX) 50 ML IVPB ×3 (05:36→23:30)
[2018-02-22] MEDS: LEVOTHYROXINE 75 MCG TAB PO (05:36)
[2018-02-22] MEDS: FUROSEMIDE 20 MG TAB PO (05:37)
[2018-02-22] MEDS: ONDANSETRON 4 MG INJ IV (05:40)
[2018-02-22] MEDS: INSULIN ASPART [NOVOLOG] 3 ML PEN SC ×4 (07:47→20:45)
[2018-02-22] MEDS: NATEGLINIDE 120 MG TAB PO ×3 (07:48→18:22)
[2018-02-22] MEDS: ALBUTEROL 0.083% (NEB) 2.5 MG/3 ML AMP HHN ×3 (08:00→20:44)
[2018-02-22] MEDS: MINOXIDIL 2.5 MG TAB PO ×2 (08:38→20:46)
[2018-02-22] MEDS: ISOSORBIDE MONONITRATE(SR)30 MG TAB PO (08:38)
[2018-02-22] MEDS: NA BICARBONATE 650 MG TAB PO ×2 (08:38→21:00)
[2018-02-22] MEDS: CHOLECALCIFEROL 1,000 UNIT TAB PO (08:38)
[2018-02-22] MEDS: LORATADINE 10 MG TAB PO (08:38)
[2018-02-22] MEDS: LINAGLIPTIN 5 MG TABLET PO (08:38)
[2018-02-22] MEDS: CLOPIDOGREL 75 MG TAB PO (08:38)
[2018-02-22] MEDS: NEBIVOLOL 5 MG TAB PO ×2 (08:39→21:00)
[2018-02-22] MEDS: AMLODIPINE 10 MG TAB PO (08:39)
[2018-02-22] MEDS: NYSTATIN 30 GM POWDER BTL TOP ×2 (08:39→21:02)
[2018-02-22 09:02] LABS: ADD MAN DIFF? NO
[2018-02-22 09:25] LABS: ABNORMAL IP MESSAGE 1; BASOPHIL # 0.1 10^3/ul (0.0-0.1); BASOPHILS % 0.3 % (0.0-2.0); EOSINOPHILS # 0.1 10^3/ul (0.0-0.5); EOSINOPHILS % 0.4 % (0.0-7.0); HEMATOCRIT 24.8 % (37.0-47.0); HEMOGLOBIN 8.1 g/dl (12.0-16.0); LYMPHOCYTES # 0.9 10^3/ul (0.8-2.9); LYMPHOCYTES % 5.3 % (15.0-51.0); MEAN CORPUSCULAR HEMOGLOBIN 32.4 pg (29.0-33.0); MEAN CORPUSCULAR HGB CONC 32.7 g/dl (32.0-37.0); MEAN CORPUSCULAR VOLUME 99.2 fl (82.0-101.0); MEAN PLATELET VOLUME 12.5 fl (7.4-10.4); MONOCYTE # 1.6 10^3/ul (0.3-0.9); MONOCYTES % 9.6 % (0.0-11.0); NEUTROPHIL # 13.7 10^3/ul (1.6-7.5); NEUTROPHILS % 83.4 % (39.0-77.0); PLATELET COUNT 250 10^3/UL (140-415); POSITIVE DIFF @See below; RED CELL DISTRIBUTION WIDTH 15.5 % (11.5-14.5)
[2018-02-22 09:25] LABS: WHITE BLOOD COUNT 16.4 10^3/ul (4.8-10.8)
[2018-02-22 09:44] LABS: ALBUMIN 3.1 g/dl (3.3-4.9); ANION GAP 20 (8-16); BLOOD UREA NITROGEN 49 mg/dl (7-20); CALCIUM 7.1 mg/dl (8.4-10.2); CARBON DIOXIDE 18 mmol/L (21-31); CHLORIDE 106 mmol/L (97-110); GLUCOSE 120 mg/dl (70-220); MAGNESIUM 2.4 mg/dl (1.7-2.5); PHOSPHORUS 3.8 mg/dl (2.5-4.9); POTASSIUM 4.4 mmol/L (3.5-5.1); SODIUM 140 mmol/L (135-144)
[2018-02-22] MEDS: SOD CHLORIDE 0.9% 1,000 ML IV (12:10)
[2018-02-22] MEDS ORDERED: EPOETIN ALFA (NESRD) 3,000 UNITS/ML VIAL SC (16:30)
[2018-02-22] MEDS ORDERED: EPOETIN 10000 UNITS/ML VIAL (ONCOLOGY) SC (16:30)
[2018-02-22] MEDS: LIDOCAINE 1% (MDV) 10 ML INJ (17:51)
[2018-02-22 20:36] LABS: FLD MN% 59.5 %; FLD PMN% 40.5 %; FLD RBC 0 /uL; FLD WBC 249 /cmm
[2018-02-22 20:38] LABS: FLUID LD 283 U/L; FLUID TOTAL PROTEIN < 2.0 g/dl; FLUID TYPE PLEURAL FLUID
[2018-02-22] MEDS: DOXAZOSIN 2 MG TAB PO (20:46)
[2018-02-22] MEDS: ATORVASTATIN 10 MG TAB PO (21:00)
[2018-02-22 21:11] LABS: FLD TYPE PLEURAL
[2018-02-22 21:11] LABS: FLD CLARITY CLEAR; FLD COLOR YELLOW
[2018-02-22 21:17] LABS: FLUID GLUCOSE 128 mg/dl; FLUID TYPE PLEURAL FLUID
[2018-02-23 19:11] LABS: ANA SCREEN POSITIVE (NEGATIVE)
[2018-02-23 20:42] LABS: ANA PATTERN NUCLEOLAR
== END 2018-02-23 | DRG 637 ==
LOC: E/R 11:45 → MS4 14:02
PROVIDERS: Internal Medicine
PROC: 0W993ZX Drainage of Right Pleural Cavity, Percutaneous Approach, Diagnostic (ICD-10-PCS; principal; 2018-02-22)
DX: E11.649 Type 2 diabetes mellitus with hypoglycemia without coma (principal); G93.41 Metabolic encephalopathy; J69.0 Pneumonitis due to inhalation of food and vomit; I13.0 Hypertensive heart and chronic kidney disease with heart failure and stage 1 through stage 4 chronic kidney disease, or unspecified chronic kidney disease; C90.00 Multiple myeloma not having achieved remission; I50.32 Chronic diastolic (congestive) heart failure; E87.2 Acidosis; J90 Pleural effusion, not elsewhere classified; E83.52 Hypercalcemia; N17.9 Acute kidney failure, unspecified; I25.10 Atherosclerotic heart disease of native coronary artery without angina pectoris; R13.10 Dysphagia, unspecified; E03.9 Hypothyroidism, unspecified; E78.5 Hyperlipidemia, unspecified; E11.22 Type 2 diabetes mellitus with diabetic chronic kidney disease; N18.2 Chronic kidney disease, stage 2 (mild); Z90.49 Acquired absence of other specified parts of digestive tract; Z90.710 Acquired absence of both cervix and uterus; E86.0 Dehydration; I49.3 Ventricular premature depolarization; D64.9 Anemia, unspecified; R47.02 Dysphasia; R53.81 Other malaise
CPT/HCPCS: 36415; 36600; 70450; 71045; 71250; 76942; 77075; 78306; 80048; 80053; 80069; 81001; 82306; 82330; 82550; 82553; 82570; 82607; 82652; 82728; 82784; 82785; 82803; 82945; 82962; 83036; 83540; 83605; 83615; 83735; 83970; 84100; 84155; 84156; 84157; 84165; 84166; 84436; 84443; 84479; 84484; 85025; 85610; 85730; 86038; 86320; 87040; 87070; 87075; 87086; 87102; 87116; 88104; 88305; 89051; 92526; 92610; 93005; 93306; 94640; 94664; 96374; 96375; 97110; 97162; 97530; 99291-25; A9503; J2430

== ENCOUNTER 2018-02-24 10:08 | Inpatient (IN) | payer OTHER ==
[2018-02-24] MEDS: ALBUTEROL 0.5% (NEB) 2.5 MG/0.5 ML AMP INH (10:23)
[2018-02-24] MEDS: FUROSEMIDE 40 MG INJ IV ×2 (10:38→19:44)
[2018-02-24] MEDS: ONDANSETRON 4 MG INJ IV (10:38)
[2018-02-24] MEDS: morphine 2 MG INJ IV (10:39)
[2018-02-24 10:54] LABS: ADD MAN DIFF? NO
[2018-02-24 10:56] LABS: ABNORMAL IP MESSAGE 1; BASOPHILS % 0.1 % (0.0-2.0); HEMATOCRIT 25.2 % (37.0-47.0); HEMOGLOBIN 8.4 g/dl (12.0-16.0); LYMPHOCYTES # 0.7 10^3/ul (0.8-2.9); LYMPHOCYTES % 2.9 % (15.0-51.0); MEAN CORPUSCULAR HEMOGLOBIN 32.7 pg (29.0-33.0); MEAN CORPUSCULAR HGB CONC 33.3 g/dl (32.0-37.0); MEAN CORPUSCULAR VOLUME 98.1 fl (82.0-101.0); MEAN PLATELET VOLUME 11.3 fl (7.4-10.4); MONOCYTE # 1.2 10^3/ul (0.3-0.9); NEUTROPHIL # 21.3 10^3/ul (1.6-7.5); NUCLEATED RED BLOOD CELLS% 0.1 /100WBC (0.0-0.0); PLATELET COUNT 295 10^3/UL (140-415); POSITIVE DIFF @See below; RED BLOOD COUNT 2.57 10^6/ul (4.20-5.40)
[2018-02-24 10:56] LABS: WHITE BLOOD COUNT 23.5 10^3/ul (4.8-10.8)
[2018-02-24 11:16] LABS: ALANINE AMINOTRANSFERASE 38 IU/L (13-69); ALBUMIN 3.3 g/dl (3.3-4.9); ALBUMIN/GLOBULIN RATIO 1.03; ALKALINE PHOSPHATASE 80 IU/L (42-121); ANION GAP 20 (8-16); ASPARTATE AMINO TRANSFERASE 21 IU/L (15-46); BILIRUBIN,INDIRECT 0.2 mg/dl (0-1.1); BILIRUBIN,TOTAL 0.2 mg/dl (0.2-1.3); BLOOD UREA NITROGEN 67 mg/dl (7-20); CALCIUM 7.7 mg/dl (8.4-10.2); CARBON DIOXIDE 18 mmol/L (21-31); CHLORIDE 111 mmol/L (97-110); CREATININE 2.07 mg/dl (0.44-1.00); GLUCOSE 202 mg/dl (70-220); POTASSIUM 4.2 mmol/L (3.5-5.1); SODIUM 145 mmol/L (135-144); TOTAL PROTEIN 6.5 g/dl (6.1-8.1)
[2018-02-24 11:26] LABS: B-TYPE NATRIURETIC PEPTIDE 23200 PG/ML (0-450); TROPONIN-I 0.085 ng/ml (0.000-0.120)
[2018-02-24 11:30] LABS: INR 1.87; PROTIME 21.9 Sec (11.9-14.9); PT RATIO 1.7
[2018-02-24 11:31] LABS: PARTIAL THROMBOPLASTIN TIME 32.7 Sec (25.0-35.0)
[2018-02-24] MEDS: CEFEPIME 2GM/50 ML (PMX) 50 ML IVPB (11:41)
[2018-02-24] MEDS: SODIUM CHLORIDE 0.9% 1L BAG IV* (11:41)
[2018-02-24] MEDS: VANCOMYCIN 1 GM (PMX) 250 ML IVPB (12:13)
[2018-02-24 12:38] LABS: LACTIC ACID 1.8 mmol/L (0.5-2.0)
[2018-02-24] MEDS ORDERED: ACETAMINOPHEN 325 MG TAB PO (13:00)
[2018-02-24] MEDS ORDERED: ONDANSETRON 4 MG INJ IV (13:00)
[2018-02-24 14:24] LABS: LACTIC ACID 2.1 mmol/L (0.5-2.0)
[2018-02-24] MEDS ORDERED: NACL 0.9% 3 ML SYG IV (14:30)
[2018-02-24] MEDS ORDERED: hydrALAzine 20 MG INJ IV (14:30)
[2018-02-24] MEDS ORDERED: morphine 2 MG INJ IV (14:30)
[2018-02-24 16:31] LABS: LACTIC ACID 1.8 mmol/L (0.5-2.0)
[2018-02-24] MEDS ORDERED: GLUCAGON 1 MG INJ IM (20:30)
[2018-02-24] MEDS ORDERED: GLUCOSE GEL 15 GRAM TUBE BUCCAL (20:30)
[2018-02-24] MEDS ORDERED: DEXTROSE 50% 50 ML SYRINGE IV ×2 (20:30)
[2018-02-24] MEDS ORDERED: GLUCOSE GEL 15 GRAM TUBE PO ×2 (20:30)
[2018-02-24] MEDS: DOXAZOSIN 2 MG TAB PO (21:00)
[2018-02-24] MEDS: NEBIVOLOL 5 MG TAB PO (21:00)
[2018-02-24] MEDS: INSULIN ASPART [NOVOLOG] 3 ML PEN SC (21:00)
[2018-02-24] MEDS: MINOXIDIL 2.5 MG TAB PO (21:00)
[2018-02-24] MEDS: INSULIN GLARGINE [LANtus] 3 ML PEN SC (21:35)
[2018-02-24 23:41] LABS: AADO2 Arterial 621.6 mmHg (7.0-24.0); Allen Test ACCEPTAB; Arterial Base Excess -7.9 mmol/L (-3.0-3); Arterial Blood Gas Oxygen Sat 83.4 mmHG (95.0-100.0); Arterial COHb 0.3 % (0.0-3.0); Arterial HCO3 18.1 mmol/L (22.0-26.0); Arterial MetHb 0.2 % (0.0-1.5); Arterial Total Hemglobin 9.7 g/dl (12.0-18.0); Arterial pCO2 38.8 mmhg (35-45); Blood Gas IEPAP 15/5; Blood Gas PS 10; MODE MASK - BIPAP; Site Right Radial
[2018-02-25] MEDS: ACCU-CHEK XX (01:29)
[2018-02-25] MEDS: INSULIN ASPART [NOVOLOG] 3 ML PEN SC ×6 (01:29→21:00)
[2018-02-25] MEDS: ONDANSETRON 4 MG INJ IV (04:29)
[2018-02-25] MEDS: PANTOPRAZOLE 40 MG INJ IV (05:06)
[2018-02-25] MEDS: FUROSEMIDE 40 MG INJ IV ×3 (05:08→18:00)
[2018-02-25] MEDS: ACETAMINOPHEN 1000MG/100ML IV 100 ML IVPB (05:38)
[2018-02-25 06:01] LABS: AADO2 Arterial 631.9 mmHg (7.0-24.0); Allen Test ACCEPTAB; Arterial Base Excess -8.3 mmol/L (-3.0-3); Arterial Blood Gas Oxygen Sat 74.5 mmHG (95.0-100.0); Arterial COHb 0.3 % (0.0-3.0); Arterial Fraction of Oxyhgb 74.1 % (93.0-99.0); Arterial HCO3 17.5 mmol/L (22.0-26.0); Arterial MetHb 0.2 % (0.0-1.5); Arterial pCO2 36.8 mmhg (35-45); Blood Gas IEPAP 20/8; Blood Gas PS 12; MODE MASK - BIPAP
[2018-02-25] MEDS: LEVOTHYROXINE 75 MCG TAB PO (06:23)
[2018-02-25 06:37] LABS: ABNORMAL IP MESSAGE 1; ADD MAN DIFF? YES; HEMATOCRIT 27.3 % (37.0-47.0); HEMOGLOBIN 8.8 g/dl (12.0-16.0); MEAN CORPUSCULAR HEMOGLOBIN 32.7 pg (29.0-33.0); MEAN CORPUSCULAR HGB CONC 32.2 g/dl (32.0-37.0); MEAN CORPUSCULAR VOLUME 101.5 fl (82.0-101.0); MEAN PLATELET VOLUME 11.6 fl (7.4-10.4); NUCLEATED RED BLOOD CELLS% 0.3 /100WBC (0.0-0.0); PLATELET COUNT 276 10^3/UL (140-415); POSITIVE DIFF @See below; RED BLOOD COUNT 2.69 10^6/ul (4.20-5.40); RED CELL DISTRIBUTION WIDTH 16.6 % (11.5-14.5)
[2018-02-25 06:58] LABS: ANION GAP 14 (8-16); BLOOD UREA NITROGEN 75 mg/dl (7-20); CALCIUM 7.5 mg/dl (8.4-10.2); CARBON DIOXIDE 18 mmol/L (21-31); CHLORIDE 120 mmol/L (97-110); CREATININE 1.92 mg/dl (0.44-1.00); GLUCOSE 170 mg/dl (70-220); MAGNESIUM 2.4 mg/dl (1.7-2.5); PHOSPHORUS 4.3 mg/dl (2.5-4.9); POTASSIUM 4.1 mmol/L (3.5-5.1); SODIUM 148 mmol/L (135-144)
[2018-02-25] MEDS ORDERED: ETOMIDATE 20 MG INJ (07:00)
[2018-02-25] MEDS ORDERED: PROPOFOL 200 MG INJ (07:00)
[2018-02-25] MEDS ORDERED: SUCCINYLCHOLINE CHLORIDE 100 MG/5 ML SYG IV (07:00)
[2018-02-25 07:20] LABS: ANISOCYTOSIS 1+ (0-0); BAND NEUTROPHILS #M 1.2 10^3/ul (0.0-0.6); BAND NEUTROPHILS % (M) 4 % (0-4); ERYTHROBLAST% (NRBC) (M) 1 % (0-0); LYMPHOCYTES #M 0.3 10^3/ul (0.8-2.9); LYMPHOCYTES % (M) 1 % (15-51); METAMYELOCYTES #M 0.3 10^3/ul (0.0-0.0); METAMYELOCYTES %M 1 % (0-0); MONOCYTE #M 0.6 10^3/ul (0.3-0.9); MONOCYTES % (M) 2 % (0-11); PLATELET ESTIMATE NORMAL; POLYCHROMASIA 1+ (0-0); SEG NEUT #M 28.9 10^3/ul (1.6-7.5); SEGMENTED NEUTROPHILS (M) % 92 % (39-77); SMUDGE%M 3 % (0-0)
[2018-02-25] MEDS: NEBIVOLOL 5 MG TAB PO ×2 (09:00→21:01)
[2018-02-25] MEDS: LIDOCAINE 1% (MPF) 5 ML VIAL SC (09:00)
[2018-02-25] MEDS: ISOSORBIDE MONONITRATE(SR)30 MG TAB PO (09:00)
[2018-02-25] MEDS: AMLODIPINE 10 MG TAB PO (09:00)
[2018-02-25] MEDS: CLOPIDOGREL 75 MG TAB PO (09:00)
[2018-02-25] MEDS: MINOXIDIL 2.5 MG TAB PO ×2 (09:00→21:01)
[2018-02-25] MEDS ORDERED: VANCOMYCIN IV PER PHARMACY XX (09:30)
[2018-02-25 09:54] LABS: OCCULT BLOOD STOOL POSITIVE (NEGATIVE)
[2018-02-25 11:04] LABS: AADO2 Arterial 622.7 mmHg (7.0-24.0); Allen Test ACCEPTAB; Arterial Base Excess -6.8 mmol/L (-3.0-3); Arterial Blood Gas Oxygen Sat 87.6 mmHG (95.0-100.0); Arterial COHb 0.3 % (0.0-3.0); Arterial Fraction of Oxyhgb 87.2 % (93.0-99.0); Arterial HCO3 18.3 mmol/L (22.0-26.0); Arterial MetHb 0.1 % (0.0-1.5); Arterial Total Hemglobin 10.5 g/dl (12.0-18.0); Arterial pCO2 35.2 mmhg (35-45); Blood Gas IEPAP 20/8; Blood Gas PS 12; MODE MASK - BIPAP; Site Right Radial
[2018-02-25] MEDS: CEFEPIME 2GM/50 ML (PMX) 50 ML IVPB (12:15)
[2018-02-25] MEDS ORDERED: PROPOFOL 100 ML (13:10)
[2018-02-25] MEDS: PROPOFOL 100 ML IV (13:43)
[2018-02-25] MEDS: FENTAnyl (DRIP) 1000 mcg/100mL 100 ML IV (14:42)
[2018-02-25 16:18] LABS: AADO2 Arterial 602.7 mmHg (7.0-24.0); Allen Test ACCEPTAB; Arterial Base Excess -5.6 mmol/L (-3.0-3); Arterial Blood Gas Oxygen Sat 93.8 mmHG (95.0-100.0); Arterial COHb 0.3 % (0.0-3.0); Arterial Fraction of Oxyhgb 93.4 % (93.0-99.0); Arterial HCO3 19.6 mmol/L (22.0-26.0); Arterial MetHb 0.1 % (0.0-1.5); Arterial Total Hemglobin 9.8 g/dl (12.0-18.0); Arterial pCO2 37.3 mmhg (35-45); MODE VENT - AC; Site Right Radial
[2018-02-25] MEDS: PIPER-TAZO 2.25 GM (PMX) 50 ML IVPB ×2 (16:59→22:16)
[2018-02-25] MEDS: METHYLPREDNISOLONE 125 MG INJ IV (18:05)
[2018-02-25] MEDS: DOXAZOSIN 2 MG TAB PO (21:02)
[2018-02-26] MEDS: METHYLPREDNISOLONE 125 MG INJ IV ×4 (00:20→17:06)
[2018-02-26] MEDS: INSULIN ASPART [NOVOLOG] 3 ML PEN SC ×6 (01:00→21:30)
[2018-02-26] MEDS: ACCU-CHEK XX (02:13)
[2018-02-26] MEDS: PROPOFOL 100 ML IV ×2 (03:31→14:45)
[2018-02-26 05:15] LABS: ADD MAN DIFF? NO
[2018-02-26 05:21] LABS: WHITE BLOOD COUNT 24.2 10^3/ul (4.8-10.8)
[2018-02-26 05:21] LABS: ABNORMAL IP MESSAGE 1; BASOPHILS % 0.2 % (0.0-2.0); HEMATOCRIT 25.2 % (37.0-47.0); HEMOGLOBIN 8.2 g/dl (12.0-16.0); LYMPHOCYTES # 0.6 10^3/ul (0.8-2.9); LYMPHOCYTES % 2.4 % (15.0-51.0); MEAN CORPUSCULAR HEMOGLOBIN 32.3 pg (29.0-33.0); MEAN CORPUSCULAR HGB CONC 32.5 g/dl (32.0-37.0); MEAN CORPUSCULAR VOLUME 99.2 fl (82.0-101.0); MEAN PLATELET VOLUME 11.7 fl (7.4-10.4); MONOCYTE # 0.4 10^3/ul (0.3-0.9); MONOCYTES % 1.4 % (0.0-11.0); NEUTROPHIL # 23.1 10^3/ul (1.6-7.5); NEUTROPHILS % 95.3 % (39.0-77.0); NUCLEATED RED BLOOD CELLS # 0.1 10^3/ul (0.0-0.0); NUCLEATED RED BLOOD CELLS% 0.3 /100WBC (0.0-0.0); PLATELET COUNT 237 10^3/UL (140-415); RED BLOOD COUNT 2.54 10^6/ul (4.20-5.40); RED CELL DISTRIBUTION WIDTH 16.1 % (11.5-14.5)
[2018-02-26 05:32] LABS: POSITIVE DIFF @See below
[2018-02-26 05:33] LABS: ANION GAP 10 (8-16); BLOOD UREA NITROGEN 71 mg/dl (7-20); CALCIUM 7.5 mg/dl (8.4-10.2); CARBON DIOXIDE 22 mmol/L (21-31); CHLORIDE 125 mmol/L (97-110); CREATININE 1.88 mg/dl (0.44-1.00); GLUCOSE 117 mg/dl (70-220); MAGNESIUM 2.3 mg/dl (1.7-2.5); POTASSIUM 3.2 mmol/L (3.5-5.1); SODIUM 154 mmol/L (135-144)
[2018-02-26] MEDS: PANTOPRAZOLE 40 MG INJ IV (06:20)
[2018-02-26] MEDS: LEVOTHYROXINE 75 MCG TAB PO (06:20)
[2018-02-26] MEDS: PIPER-TAZO 2.25 GM (PMX) 50 ML IVPB ×3 (06:20→21:30)
[2018-02-26] MEDS: FUROSEMIDE 40 MG INJ IV ×2 (06:23→17:31)
[2018-02-26 07:29] LABS: AADO2 Arterial 443.8 mmHg (7.0-24.0); Allen Test ACCEPTAB; Arterial Base Excess -3.1 mmol/L (-3.0-3); Arterial Blood Gas Oxygen Sat 99.1 mmHG (95.0-100.0); Arterial COHb 0 % (0.0-3.0); Arterial Fraction of Oxyhgb 98.7 % (93.0-99.0); Arterial HCO3 20.1 mmol/L (22.0-26.0); Arterial MetHb 0.4 % (0.0-1.5); Arterial Total Hemglobin 7.9 g/dl (12.0-18.0); Arterial pCO2 28.5 mmhg (35-45); MODE VENT - AC; Site Right Radial
[2018-02-26] MEDS: NEBIVOLOL 5 MG TAB PO ×2 (08:09→21:00)
[2018-02-26] MEDS: MINOXIDIL 2.5 MG TAB PO ×2 (09:00→21:00)
[2018-02-26] MEDS: AMLODIPINE 10 MG TAB PO (09:00)
[2018-02-26] MEDS: ISOSORBIDE MONONITRATE(SR)30 MG TAB PO (09:00)
[2018-02-26] MEDS: CLOPIDOGREL 75 MG TAB PO (09:53)
[2018-02-26] MEDS: D5W + KCL 20 MEQ 1,000 ML IV ×2 (09:53→21:30)
[2018-02-26] MEDS: VANCOMYCIN 1 GM 250 ML IVPB (11:26)
[2018-02-26] MEDS ORDERED: morphine LIQ (10 MG/5 ML) CUP PO (14:00)
[2018-02-26] MEDS: DOXAZOSIN 2 MG TAB PO (21:00)
[2018-02-26] MEDS: NORepinephrine 8MG/250 ML (PMX 250 ML IV (21:47)
[2018-02-27] MEDS: METHYLPREDNISOLONE 125 MG INJ IV ×5 (00:55→23:23)
[2018-02-27] MEDS: INSULIN ASPART [NOVOLOG] 3 ML PEN SC ×6 (01:00→21:28)
[2018-02-27] MEDS: ACCU-CHEK XX (02:00)
[2018-02-27] MEDS: PROPOFOL 100 ML IV ×3 (02:30→23:23)
[2018-02-27] MEDS: PANTOPRAZOLE 40 MG INJ IV (06:10)
[2018-02-27] MEDS: LEVOTHYROXINE 75 MCG TAB PO (06:10)
[2018-02-27] MEDS: PIPER-TAZO 2.25 GM (PMX) 50 ML IVPB ×3 (06:10→21:35)
[2018-02-27] MEDS: FUROSEMIDE 20 MG INJ IV (06:12)
[2018-02-27 07:13] LABS: ADD MAN DIFF? NO
[2018-02-27 07:19] LABS: ABNORMAL IP MESSAGE 1; BASOPHILS % 0.2 % (0.0-2.0); HEMATOCRIT 24.5 % (37.0-47.0); HEMOGLOBIN 7.9 g/dl (12.0-16.0); LYMPHOCYTES # 0.6 10^3/ul (0.8-2.9); LYMPHOCYTES % 2.2 % (15.0-51.0); MEAN CORPUSCULAR HEMOGLOBIN 32.1 pg (29.0-33.0); MEAN CORPUSCULAR HGB CONC 32.2 g/dl (32.0-37.0); MEAN CORPUSCULAR VOLUME 99.6 fl (82.0-101.0); MEAN PLATELET VOLUME 11.7 fl (7.4-10.4); MONOCYTE # 0.5 10^3/ul (0.3-0.9); NEUTROPHIL # 24.5 10^3/ul (1.6-7.5); NEUTROPHILS % 94.4 % (39.0-77.0); NUCLEATED RED BLOOD CELLS # 0.1 10^3/ul (0.0-0.0); NUCLEATED RED BLOOD CELLS% 0.3 /100WBC (0.0-0.0); PLATELET COUNT 249 10^3/UL (140-415); RED BLOOD COUNT 2.46 10^6/ul (4.20-5.40); RED CELL DISTRIBUTION WIDTH 16.5 % (11.5-14.5)
[2018-02-27 07:27] LABS: POSITIVE DIFF @See below
[2018-02-27 07:42] LABS: ANION GAP 13 (8-16); BLOOD UREA NITROGEN 63 mg/dl (7-20); CALCIUM 7.3 mg/dl (8.4-10.2); CARBON DIOXIDE 21 mmol/L (21-31); CHLORIDE 120 mmol/L (97-110); CREATININE 1.93 mg/dl (0.44-1.00); GLUCOSE 207 mg/dl (70-220); POTASSIUM 3.4 mmol/L (3.5-5.1); SODIUM 151 mmol/L (135-144)
[2018-02-27 08:42] LABS: AADO2 Arterial 449.4 mmHg (7.0-24.0); Allen Test ACCEPTAB; Arterial Base Excess -4.7 mmol/L (-3.0-3); Arterial Blood Gas Oxygen Sat 96.5 mmHG (95.0-100.0); Arterial COHb 0.2 % (0.0-3.0); Arterial HCO3 19.2 mmol/L (22.0-26.0); Arterial MetHb 0.3 % (0.0-1.5); Arterial Total Hemglobin 8.9 g/dl (12.0-18.0); Arterial pCO2 31.2 mmhg (35-45); MODE VENT - AC; Site Right Radial
[2018-02-27] MEDS: CLOPIDOGREL 75 MG TAB PO (08:51)
[2018-02-27] MEDS: NEBIVOLOL 5 MG TAB PO ×2 (09:00→21:33)
[2018-02-27] MEDS: AMLODIPINE 10 MG TAB PO (09:00)
[2018-02-27] MEDS: MINOXIDIL 2.5 MG TAB PO ×2 (09:00→21:34)
[2018-02-27] MEDS: ISOSORBIDE MONONITRATE(SR)30 MG TAB PO (09:00)
[2018-02-27] MEDS: D5W + KCL 20 MEQ 1,000 ML IV (11:32)
[2018-02-27] MEDS: FENTAnyl (DRIP) 1000 mcg/100mL 100 ML IV (15:14)
[2018-02-27] MEDS: POTASSIUM CHLORIDE 100 ML IVPB (17:34)
[2018-02-27] MEDS: DOXAZOSIN 2 MG TAB PO (21:33)
[2018-02-28] MEDS: INSULIN ASPART [NOVOLOG] 3 ML PEN SC ×6 (01:30→22:43)
[2018-02-28] MEDS: ACCU-CHEK XX (01:38)
[2018-02-28] MEDS: D5W + KCL 20 MEQ 1,000 ML IV ×3 (02:40→19:00)
[2018-02-28 04:58] LABS: AADO2 Arterial 468.2 mmHg (7.0-24.0); Allen Test ACCEPTAB; Arterial Base Excess -5.7 mmol/L (-3.0-3); Arterial Blood Gas Oxygen Sat 92.7 mmHG (95.0-100.0); Arterial COHb 0 % (0.0-3.0); Arterial Fraction of Oxyhgb 92.3 % (93.0-99.0); Arterial MetHb 0.4 % (0.0-1.5); Arterial pCO2 34.4 mmhg (35-45); MODE VENT - AC; Site Right Radial
[2018-02-28 05:27] LABS: ADD MAN DIFF? NO
[2018-02-28 05:32] LABS: WHITE BLOOD COUNT 21.1 10^3/ul (4.8-10.8)
[2018-02-28 05:33] LABS: ABNORMAL IP MESSAGE 1; BASOPHILS % 0.1 % (0.0-2.0); HEMATOCRIT 21.7 % (37.0-47.0); LYMPHOCYTES # 0.4 10^3/ul (0.8-2.9); LYMPHOCYTES % 1.8 % (15.0-51.0); MEAN CORPUSCULAR HEMOGLOBIN 32.1 pg (29.0-33.0); MEAN CORPUSCULAR HGB CONC 32.3 g/dl (32.0-37.0); MEAN CORPUSCULAR VOLUME 99.5 fl (82.0-101.0); MEAN PLATELET VOLUME 11.6 fl (7.4-10.4); MONOCYTE # 0.4 10^3/ul (0.3-0.9); MONOCYTES % 1.9 % (0.0-11.0); NEUTROPHILS % 94.6 % (39.0-77.0); NUCLEATED RED BLOOD CELLS # 0.1 10^3/ul (0.0-0.0); NUCLEATED RED BLOOD CELLS% 0.6 /100WBC (0.0-0.0); PLATELET COUNT 165 10^3/UL (140-415); RED BLOOD COUNT 2.18 10^6/ul (4.20-5.40); RED CELL DISTRIBUTION WIDTH 16.8 % (11.5-14.5)
[2018-02-28 05:41] LABS: POSITIVE DIFF @See below
[2018-02-28 06:00] LABS: ANION GAP 11 (8-16); BLOOD UREA NITROGEN 54 mg/dl (7-20); CALCIUM 6.8 mg/dl (8.4-10.2); CARBON DIOXIDE 21 mmol/L (21-31); CHLORIDE 119 mmol/L (97-110); CREATININE 1.84 mg/dl (0.44-1.00); GLUCOSE 157 mg/dl (70-220); POTASSIUM 3.9 mmol/L (3.5-5.1); SODIUM 147 mmol/L (135-144)
[2018-02-28] MEDS ORDERED: PENDING SANTYL ORDER FOR WOUND CARE XX (06:00)
[2018-02-28] MEDS: METHYLPREDNISOLONE 125 MG INJ IV ×3 (06:06→17:41)
[2018-02-28] MEDS: PANTOPRAZOLE 40 MG INJ IV (06:06)
[2018-02-28] MEDS: PIPER-TAZO 2.25 GM (PMX) 50 ML IVPB ×3 (06:11→15:33)
[2018-02-28] MEDS: LEVOTHYROXINE 75 MCG TAB PO (06:14)
[2018-02-28] MEDS: FUROSEMIDE 20 MG INJ IV (06:14)
[2018-02-28] MEDS: AMLODIPINE 10 MG TAB PO (09:00)
[2018-02-28] MEDS: NEBIVOLOL 5 MG TAB PO ×2 (09:00→21:00)
[2018-02-28] MEDS: MINOXIDIL 2.5 MG TAB PO ×2 (09:00→21:00)
[2018-02-28] MEDS: CLOPIDOGREL 75 MG TAB PO (09:31)
[2018-02-28] MEDS: ISOSORBIDE MONONITRATE(SR)30 MG TAB PO (09:31)
[2018-02-28] MEDS: PROPOFOL 100 ML IV ×2 (10:54→22:45)
[2018-02-28] MEDS: DOXAZOSIN 2 MG TAB PO (21:07)
[2018-02-28] MEDS: FENTAnyl (DRIP) 1000 mcg/100mL 100 ML IV (21:10)
[2018-03-01] MEDS: METHYLPREDNISOLONE 125 MG INJ IV ×4 (00:17→18:06)
[2018-03-01] MEDS: ACCU-CHEK XX (02:00)
[2018-03-01] MEDS: INSULIN ASPART [NOVOLOG] 3 ML PEN SC ×6 (03:15→21:00)
[2018-03-01 05:01] LABS: AADO2 Arterial 455.4 mmHg (7.0-24.0); Allen Test ACCEPTAB; Arterial Base Excess -6.6 mmol/L (-3.0-3); Arterial Blood Gas Oxygen Sat 95.2 mmHG (95.0-100.0); Arterial COHb 0.7 % (0.0-3.0); Arterial Fraction of Oxyhgb 94.2 % (93.0-99.0); Arterial HCO3 18.6 mmol/L (22.0-26.0); Arterial MetHb 0.4 % (0.0-1.5); Arterial Total Hemglobin 8.7 g/dl (12.0-18.0); Arterial pCO2 35.7 mmhg (35-45); MODE VENT - AC; Site Right Radial
[2018-03-01 05:27] LABS: ABNORMAL IP MESSAGE 1; HEMATOCRIT 21.1 % (37.0-47.0); MEAN CORPUSCULAR HEMOGLOBIN 33.2 pg (29.0-33.0); MEAN CORPUSCULAR HGB CONC 32.7 g/dl (32.0-37.0); MEAN CORPUSCULAR VOLUME 101.4 fl (82.0-101.0); MEAN PLATELET VOLUME 11.8 fl (7.4-10.4); NUCLEATED RED BLOOD CELLS% 0.5 /100WBC (0.0-0.0); PLATELET COUNT 149 10^3/UL (140-415); RED BLOOD COUNT 2.08 10^6/ul (4.20-5.40); RED CELL DISTRIBUTION WIDTH 16.4 % (11.5-14.5)
[2018-03-01 05:27] LABS: WHITE BLOOD COUNT 19.3 10^3/ul (4.8-10.8)
[2018-03-01 05:57] LABS: ANION GAP 12 (8-16); BLOOD UREA NITROGEN 54 mg/dl (7-20); CALCIUM 6.7 mg/dl (8.4-10.2); CARBON DIOXIDE 20 mmol/L (21-31); CHLORIDE 115 mmol/L (97-110); CREATININE 1.61 mg/dl (0.44-1.00); GLUCOSE 207 mg/dl (70-220); POTASSIUM 4.5 mmol/L (3.5-5.1); SODIUM 142 mmol/L (135-144)
[2018-03-01 05:58] LABS: HEMOGLOBIN 6.9 g/dl (12.0-16.0); POSITIVE DIFF @See below
[2018-03-01 06:00] LABS: ADD MAN DIFF? YES
[2018-03-01] MEDS: PIPER-TAZO 2.25 GM (PMX) 50 ML IVPB ×3 (06:04→21:00)
[2018-03-01] MEDS: LEVOTHYROXINE 75 MCG TAB PO (06:04)
[2018-03-01] MEDS: D5W + KCL 20 MEQ 1,000 ML IV ×2 (06:05→18:10)
[2018-03-01] MEDS: FUROSEMIDE 20 MG INJ IV (06:05)
[2018-03-01] MEDS: PANTOPRAZOLE 40 MG INJ IV (06:05)
[2018-03-01] MEDS: ISOSORBIDE MONONITRATE(SR)30 MG TAB PO (09:00)
[2018-03-01] MEDS: AMLODIPINE 10 MG TAB PO (09:00)
[2018-03-01] MEDS: NEBIVOLOL 5 MG TAB PO ×2 (09:00→21:00)
[2018-03-01] MEDS: MINOXIDIL 2.5 MG TAB PO ×2 (09:00→21:00)
[2018-03-01] MEDS: CLOPIDOGREL 75 MG TAB PO (09:13)
[2018-03-01 09:37] LABS: ANISOCYTOSIS 3+ (0-0); BAND NEUTROPHILS #M 0.5 10^3/ul (0.0-0.6); BAND NEUTROPHILS % (M) 3 % (0-4); GIANT THROMBO% (M) 2 % (0-0); HYPOCHROMASIA 1+ (0-0); LYMPHOCYTES #M 0.7 10^3/ul (0.8-2.9); LYMPHOCYTES % (M) 4 % (15-51); PLATELET ESTIMATE DECREASED; POIKILOCYTOSIS 2+ (0-0); POLYCHROMASIA 3+ (0-0); SEGMENTED NEUTROPHILS (M) % 93 % (39-77); SMUDGE%M 191 % (0-0)
[2018-03-01] MEDS: PROPOFOL 100 ML IV (13:34)
[2018-03-01 14:32] LABS: HEMATOCRIT 23.9 % (37.0-47.0); HEMOGLOBIN 7.7 g/dl (12.0-16.0)
[2018-03-01] MEDS: FENTAnyl (DRIP) 1000 mcg/100mL 100 ML IV (20:49)
[2018-03-01] MEDS: DOXAZOSIN 2 MG TAB PO (21:00)
[2018-03-02] MEDS ORDERED: MIDAZOLAM 1 MG/ML 2 ML INJ (01:57)
[2018-03-02] MEDS: PROPOFOL 100 ML IV ×3 (02:00→19:45)
[2018-03-02] MEDS ORDERED: MIDAZOLAM 1 MG/ML 2 ML INJ IV (02:00)
[2018-03-02] MEDS: ACCU-CHEK XX (02:08)
[2018-03-02] MEDS: INSULIN ASPART [NOVOLOG] 3 ML PEN SC ×6 (02:15→21:46)
[2018-03-02] MEDS: MIDAZOLAM 1 MG/ML 2 ML INJ IV ×2 (02:20→21:40)
[2018-03-02] MEDS: PANTOPRAZOLE 40 MG INJ IV ×2 (05:07→18:26)
[2018-03-02] MEDS: FUROSEMIDE 20 MG INJ IV (05:07)
[2018-03-02] MEDS: METHYLPREDNISOLONE 125 MG INJ IV ×3 (05:07→12:18)
[2018-03-02] MEDS: PIPER-TAZO 2.25 GM (PMX) 50 ML IVPB ×3 (05:07→21:46)
[2018-03-02 05:28] LABS: ABNORMAL IP MESSAGE 1; HEMATOCRIT 21.8 % (37.0-47.0); MEAN CORPUSCULAR HEMOGLOBIN 31.5 pg (29.0-33.0); MEAN CORPUSCULAR HGB CONC 31.7 g/dl (32.0-37.0); MEAN CORPUSCULAR VOLUME 99.5 fl (82.0-101.0); NUCLEATED RED BLOOD CELLS% 0.3 /100WBC (0.0-0.0); PLATELET COUNT 147 10^3/UL (140-415); RED BLOOD COUNT 2.19 10^6/ul (4.20-5.40)
[2018-03-02 05:32] LABS: ADD MAN DIFF? YES; HEMOGLOBIN 6.9 g/dl (12.0-16.0); POSITIVE DIFF @See below
[2018-03-02 05:47] LABS: ALBUMIN 2.4 g/dl (3.3-4.9); ANION GAP 13 (8-16); BLOOD UREA NITROGEN 47 mg/dl (7-20); CALCIUM 6.5 mg/dl (8.4-10.2); CARBON DIOXIDE 21 mmol/L (21-31); CHLORIDE 112 mmol/L (97-110); CREATININE 1.52 mg/dl (0.44-1.00); GLUCOSE 200 mg/dl (70-220); MAGNESIUM 1.8 mg/dl (1.7-2.5); PHOSPHORUS 2.6 mg/dl (2.5-4.9); POTASSIUM 4.4 mmol/L (3.5-5.1); SODIUM 142 mmol/L (135-144)
[2018-03-02] MEDS: LEVOTHYROXINE 75 MCG TAB PO (06:03)
[2018-03-02] MEDS: D5W + KCL 20 MEQ 1,000 ML IV ×2 (06:03→18:25)
[2018-03-02] MEDS: FENTAnyl (DRIP) 1000 mcg/100mL 100 ML IV ×2 (06:14→16:32)
[2018-03-02 07:52] LABS: AADO2 Arterial 403.8 mmHg (7.0-24.0); Allen Test ACCEPTAB; Arterial Base Excess -5.8 mmol/L (-3.0-3); Arterial Blood Gas Oxygen Sat 89.5 mmHG (95.0-100.0); Arterial COHb 0.8 % (0.0-3.0); Arterial Fraction of Oxyhgb 88.4 % (93.0-99.0); Arterial MetHb 0.4 % (0.0-1.5); Arterial Total Hemglobin 8.3 g/dl (12.0-18.0); Arterial pCO2 34.4 mmhg (35-45); MODE VENT - AC; Site Right Radial
[2018-03-02] MEDS: CLOPIDOGREL 75 MG TAB PO (10:08)
[2018-03-02] MEDS: NEBIVOLOL 5 MG TAB PO ×2 (10:09→21:00)
[2018-03-02] MEDS: MINOXIDIL 2.5 MG TAB PO ×2 (10:09→22:30)
[2018-03-02] MEDS: AMLODIPINE 10 MG TAB PO (10:10)
[2018-03-02] MEDS: ISOSORBIDE MONONITRATE(SR)30 MG TAB PO (10:10)
[2018-03-02 10:30] LABS: ANISOCYTOSIS 2+ (0-0); BAND NEUTROPHILS #M 1.3 10^3/ul (0.0-0.6); BAND NEUTROPHILS % (M) 6 % (0-4); ERYTHROBLAST% (NRBC) (M) 1 % (0-0); GIANT THROMBO% (M) 1 % (0-0); MONOCYTE #M 0.2 10^3/ul (0.3-0.9); MONOCYTES % (M) 1 % (0-11); PLATELET ESTIMATE NORMAL; POIKILOCYTOSIS 3+ (0-0); SEG NEUT #M 21.7 10^3/ul (1.6-7.5); SEGMENTED NEUTROPHILS (M) % 93 % (39-77); SMUDGE%M 23 % (0-0)
[2018-03-02 11:36] LABS: HEMATOCRIT 21.9 % (37.0-47.0); HEMOGLOBIN 7.1 g/dl (12.0-16.0)
[2018-03-02 16:17] LABS: IMMEDIATE SPIN CROSSMATCH 1 1
[2018-03-02] MEDS: INSULIN GLARGINE [LANTus] (100 UNITS/ML) SYG SC (21:45)
[2018-03-02] MEDS: DOXAZOSIN 2 MG TAB PO (22:33)
[2018-03-03] MEDS: FENTAnyl (DRIP) 1000 mcg/100mL 100 ML IV ×2 (01:02→11:24)
[2018-03-03] MEDS: INSULIN ASPART [NOVOLOG] 3 ML PEN SC ×6 (01:12→21:04)
[2018-03-03] MEDS: MIDAZOLAM 1 MG/ML 2 ML INJ IV (02:00)
[2018-03-03 05:19] LABS: ADD MAN DIFF? NO
[2018-03-03 05:21] LABS: WHITE BLOOD COUNT 24.7 10^3/ul (4.8-10.8)
[2018-03-03 05:21] LABS: ABNORMAL IP MESSAGE 1; BASOPHILS % 0.2 % (0.0-2.0); EOSINOPHILS % 0.1 % (0.0-7.0); HEMATOCRIT 26.4 % (37.0-47.0); HEMOGLOBIN 8.6 g/dl (12.0-16.0); LYMPHOCYTES # 0.3 10^3/ul (0.8-2.9); MEAN CORPUSCULAR HEMOGLOBIN 31.4 pg (29.0-33.0); MEAN CORPUSCULAR HGB CONC 32.6 g/dl (32.0-37.0); MEAN CORPUSCULAR VOLUME 96.4 fl (82.0-101.0); MEAN PLATELET VOLUME 11.7 fl (7.4-10.4); MONOCYTE # 0.4 10^3/ul (0.3-0.9); MONOCYTES % 1.7 % (0.0-11.0); NEUTROPHIL # 23.5 10^3/ul (1.6-7.5); NEUTROPHILS % 94.8 % (39.0-77.0); NUCLEATED RED BLOOD CELLS # 0.1 10^3/ul (0.0-0.0); NUCLEATED RED BLOOD CELLS% 0.5 /100WBC (0.0-0.0); PLATELET COUNT 141 10^3/UL (140-415); RED BLOOD COUNT 2.74 10^6/ul (4.20-5.40); RED CELL DISTRIBUTION WIDTH 18.7 % (11.5-14.5)
[2018-03-03] MEDS: FUROSEMIDE 20 MG INJ IV (05:49)
[2018-03-03] MEDS: PIPER-TAZO 2.25 GM (PMX) 50 ML IVPB ×3 (05:49→22:08)
[2018-03-03] MEDS: PANTOPRAZOLE 40 MG INJ IV ×2 (05:49→17:29)
[2018-03-03] MEDS: LEVOTHYROXINE 75 MCG TAB PO (05:50)
[2018-03-03 05:53] LABS: POSITIVE DIFF @See below
[2018-03-03 06:13] LABS: ALBUMIN 2.4 g/dl (3.3-4.9); ANION GAP 10 (8-16); BLOOD UREA NITROGEN 44 mg/dl (7-20); CALCIUM 6.1 mg/dl (8.4-10.2); CARBON DIOXIDE 22 mmol/L (21-31); CHLORIDE 111 mmol/L (97-110); CREATININE 1.34 mg/dl (0.44-1.00); GLUCOSE 208 mg/dl (70-220); MAGNESIUM 1.8 mg/dl (1.7-2.5); PHOSPHORUS 2.1 mg/dl (2.5-4.9); POTASSIUM 4.8 mmol/L (3.5-5.1); SODIUM 138 mmol/L (135-144)
[2018-03-03] MEDS: D5W + KCL 20 MEQ 1,000 ML IV (06:55)
[2018-03-03 07:43] LABS: AADO2 Arterial 401.8 mmHg (7.0-24.0); Allen Test ACCEPTAB; Arterial Base Excess -6.5 mmol/L (-3.0-3); Arterial Blood Gas Oxygen Sat 87.6 mmHG (95.0-100.0); Arterial COHb 0.8 % (0.0-3.0); Arterial Fraction of Oxyhgb 86.7 % (93.0-99.0); Arterial HCO3 19.5 mmol/L (22.0-26.0); Arterial MetHb 0.2 % (0.0-1.5); Arterial Total Hemglobin 10.6 g/dl (12.0-18.0); Arterial pCO2 40.8 mmhg (35-45); MODE VENT - AC; Site Right Radial
[2018-03-03] MEDS: PROPOFOL 100 ML IV ×3 (08:42→20:54)
[2018-03-03] MEDS: NEBIVOLOL 5 MG TAB PO ×2 (09:00→21:00)
[2018-03-03] MEDS: MINOXIDIL 2.5 MG TAB PO ×2 (09:00→20:56)
[2018-03-03] MEDS: ISOSORBIDE MONONITRATE(SR)30 MG TAB PO (09:00)
[2018-03-03] MEDS: AMLODIPINE 10 MG TAB PO (09:00)
[2018-03-03] MEDS: METHYLPREDNISOLONE 125 MG INJ IV ×2 (09:43→20:54)
[2018-03-03] MEDS: CALCIUM GLUCONATE 10% 1 GM in DEXTROSE 5% 100 ML IVPB (11:26)
[2018-03-03 13:25] LABS: PROCALCITONIN 0.69 ng/mL (<0.10)
[2018-03-03 14:29] LABS: AADO2 Arterial 495.3 mmHg (7.0-24.0); Allen Test ACCEPTAB; Arterial Base Excess -4.5 mmol/L (-3.0-3); Arterial Blood Gas Oxygen Sat 98.9 mmHG (95.0-100.0); Arterial COHb 0.3 % (0.0-3.0); Arterial Fraction of Oxyhgb 98.2 % (93.0-99.0); Arterial HCO3 20.6 mmol/L (22.0-26.0); Arterial MetHb 0.4 % (0.0-1.5); Arterial Total Hemglobin 8.2 g/dl (12.0-18.0); Arterial pCO2 37.6 mmhg (35-45); MODE VENT - AC; Site Right Radial
[2018-03-03] MEDS: DOXAZOSIN 2 MG TAB PO (20:55)
[2018-03-03] MEDS: INSULIN GLARGINE [LANTus] (100 UNITS/ML) SYG SC (21:03)
[2018-03-03] MEDS: NS + KCL 20 MEQ 1,000 ML IV (23:24)
[2018-03-04] MEDS: INSULIN ASPART [NOVOLOG] 3 ML PEN SC ×6 (01:01→21:16)
[2018-03-04] MEDS: PROPOFOL 100 ML IV ×4 (02:00→20:49)
[2018-03-04 05:24] LABS: ADD MAN DIFF? NO
[2018-03-04 05:35] LABS: WHITE BLOOD COUNT 22.4 10^3/ul (4.8-10.8)
[2018-03-04 05:35] LABS: ABNORMAL IP MESSAGE 1; BASOPHILS % 0.1 % (0.0-2.0); HEMATOCRIT 26.1 % (37.0-47.0); HEMOGLOBIN 8.4 g/dl (12.0-16.0); LYMPHOCYTES # 0.2 10^3/ul (0.8-2.9); LYMPHOCYTES % 0.8 % (15.0-51.0); MEAN CORPUSCULAR HEMOGLOBIN 30.9 pg (29.0-33.0); MEAN CORPUSCULAR HGB CONC 32.2 g/dl (32.0-37.0); MEAN PLATELET VOLUME 11.8 fl (7.4-10.4); MONOCYTE # 0.3 10^3/ul (0.3-0.9); MONOCYTES % 1.1 % (0.0-11.0); NEUTROPHIL # 21.6 10^3/ul (1.6-7.5); NUCLEATED RED BLOOD CELLS% 0.1 /100WBC (0.0-0.0); PLATELET COUNT 128 10^3/UL (140-415); RED BLOOD COUNT 2.72 10^6/ul (4.20-5.40); RED CELL DISTRIBUTION WIDTH 18.8 % (11.5-14.5)
[2018-03-04] MEDS: PANTOPRAZOLE 40 MG INJ IV ×2 (05:41→17:05)
[2018-03-04] MEDS: PIPER-TAZO 2.25 GM (PMX) 50 ML IVPB ×3 (05:41→22:04)
[2018-03-04 05:44] LABS: NEUTROPHILS % 96.3 % (39.0-77.0); POSITIVE DIFF @See below
[2018-03-04] MEDS: FUROSEMIDE 20 MG INJ IV (05:50)
[2018-03-04 06:10] LABS: ALBUMIN 2.5 g/dl (3.3-4.9); ANION GAP 10 (8-16); BLOOD UREA NITROGEN 42 mg/dl (7-20); CALCIUM 6.5 mg/dl (8.4-10.2); CARBON DIOXIDE 23 mmol/L (21-31); CHLORIDE 110 mmol/L (97-110); CREATININE 1.23 mg/dl (0.44-1.00); GLUCOSE 212 mg/dl (70-220); MAGNESIUM 1.9 mg/dl (1.7-2.5); PHOSPHORUS 1.9 mg/dl (2.5-4.9); POTASSIUM 5.3 mmol/L (3.5-5.1); SODIUM 138 mmol/L (135-144)
[2018-03-04] MEDS: METHYLPREDNISOLONE 125 MG INJ IV ×2 (07:55→21:07)
[2018-03-04] MEDS: LEVOTHYROXINE 75 MCG TAB PO (07:55)
[2018-03-04] MEDS: FENTAnyl (DRIP) 1000 mcg/100mL 100 ML IV (07:57)
[2018-03-04] MEDS: ISOSORBIDE MONONITRATE(SR)30 MG TAB PO (09:00)
[2018-03-04] MEDS: NEBIVOLOL 5 MG TAB PO ×2 (09:00→21:00)
[2018-03-04] MEDS: MINOXIDIL 2.5 MG TAB PO ×2 (09:00→21:07)
[2018-03-04] MEDS: AMLODIPINE 10 MG TAB PO (09:00)
[2018-03-04] MEDS: NS + KCL 20 MEQ 1,000 ML IV (11:51)
[2018-03-04] MEDS: DOXAZOSIN 2 MG TAB PO (21:06)
[2018-03-04] MEDS: INSULIN GLARGINE [LANTus] (100 UNITS/ML) SYG SC (21:17)
[2018-03-05] MEDS: FENTAnyl (DRIP) 1000 mcg/100mL 100 ML IV (00:26)
[2018-03-05] MEDS: INSULIN ASPART [NOVOLOG] 3 ML PEN SC ×6 (00:39→20:45)
[2018-03-05] MEDS: NS + KCL 20 MEQ 1,000 ML IV (00:40)
[2018-03-05] MEDS ORDERED: ACCU-CHEK XX (02:00)
[2018-03-05] MEDS: PROPOFOL 100 ML IV ×4 (02:00→20:58)
[2018-03-05 04:25] LABS: ADD MAN DIFF? NO
[2018-03-05 04:28] LABS: ABNORMAL IP MESSAGE 1; BASOPHILS % 0.1 % (0.0-2.0); HEMATOCRIT 25.4 % (37.0-47.0); HEMOGLOBIN 8.1 g/dl (12.0-16.0); LYMPHOCYTES # 0.1 10^3/ul (0.8-2.9); LYMPHOCYTES % 0.6 % (15.0-51.0); MEAN CORPUSCULAR HEMOGLOBIN 30.6 pg (29.0-33.0); MEAN CORPUSCULAR HGB CONC 31.9 g/dl (32.0-37.0); MEAN CORPUSCULAR VOLUME 95.8 fl (82.0-101.0); MEAN PLATELET VOLUME 11.7 fl (7.4-10.4); MONOCYTE # 0.3 10^3/ul (0.3-0.9); MONOCYTES % 1.7 % (0.0-11.0); NEUTROPHIL # 19.4 10^3/ul (1.6-7.5); NEUTROPHILS % 95.3 % (39.0-77.0); NUCLEATED RED BLOOD CELLS% 0.1 /100WBC (0.0-0.0); PLATELET COUNT 132 10^3/UL (140-415); RED BLOOD COUNT 2.65 10^6/ul (4.20-5.40); RED CELL DISTRIBUTION WIDTH 18.6 % (11.5-14.5)
[2018-03-05 04:28] LABS: WHITE BLOOD COUNT 20.3 10^3/ul (4.8-10.8)
[2018-03-05 04:38] LABS: POSITIVE DIFF @See below
[2018-03-05 04:46] LABS: ANION GAP 12 (8-16); BLOOD UREA NITROGEN 43 mg/dl (7-20); CALCIUM 6.3 mg/dl (8.4-10.2); CARBON DIOXIDE 24 mmol/L (21-31); CHLORIDE 112 mmol/L (97-110); CREATININE 1.09 mg/dl (0.44-1.00); GLUCOSE 183 mg/dl (70-220); MAGNESIUM 1.9 mg/dl (1.7-2.5); POTASSIUM 5.5 mmol/L (3.5-5.1); SODIUM 142 mmol/L (135-144)
[2018-03-05 04:48] LABS: PHOSPHORUS 1.9 mg/dl (2.5-4.9)
[2018-03-05] MEDS: PANTOPRAZOLE 40 MG INJ IV ×2 (05:09→17:19)
[2018-03-05] MEDS: PIPER-TAZO 2.25 GM (PMX) 50 ML IVPB ×3 (06:07→21:57)
[2018-03-05] MEDS: FUROSEMIDE 20 MG INJ IV (06:08)
[2018-03-05] MEDS: LEVOTHYROXINE 75 MCG TAB PO (06:08)
[2018-03-05] MEDS ORDERED: DEXTROSE 50% 50 ML SYRINGE IV (09:00)
[2018-03-05] MEDS: MINOXIDIL 2.5 MG TAB PO ×2 (09:11→20:39)
[2018-03-05] MEDS: NEBIVOLOL 5 MG TAB PO ×2 (09:11→20:39)
[2018-03-05] MEDS: METHYLPREDNISOLONE 125 MG INJ IV ×2 (09:11→20:37)
[2018-03-05] MEDS: ISOSORBIDE MONONITRATE(SR)30 MG TAB PO (09:11)
[2018-03-05] MEDS: SODIUM PHOSPHATE 30 MMOL in SOD CHLORIDE 0.9% 250 ML IVPB (10:21)
[2018-03-05] MEDS: INSULIN REGULAR, HUMAN 100 UNIT/1 ML 3ML VIAL IVP (10:25)
[2018-03-05] MEDS: DOXAZOSIN 2 MG TAB PO (20:39)
[2018-03-05] MEDS: INSULIN GLARGINE [LANTus] (100 UNITS/ML) SYG SC (20:44)
[2018-03-06] MEDS: FENTAnyl (DRIP) 1000 mcg/100mL 100 ML IV (00:50)
[2018-03-06] MEDS: INSULIN ASPART [NOVOLOG] 3 ML PEN SC ×3 (00:54→08:43)
[2018-03-06 04:51] LABS: ABNORMAL IP MESSAGE 1; ADD MAN DIFF? NO; BASOPHILS % 0.1 % (0.0-2.0); HEMATOCRIT 25.1 % (37.0-47.0); HEMOGLOBIN 8.1 g/dl (12.0-16.0); LYMPHOCYTES # 0.2 10^3/ul (0.8-2.9); LYMPHOCYTES % 0.7 % (15.0-51.0); MEAN CORPUSCULAR HGB CONC 32.3 g/dl (32.0-37.0); MEAN CORPUSCULAR VOLUME 96.2 fl (82.0-101.0); MEAN PLATELET VOLUME 11.6 fl (7.4-10.4); MONOCYTE # 0.6 10^3/ul (0.3-0.9); MONOCYTES % 2.7 % (0.0-11.0); NEUTROPHIL # 21.4 10^3/ul (1.6-7.5); NEUTROPHILS % 92.6 % (39.0-77.0); NUCLEATED RED BLOOD CELLS% 0.1 /100WBC (0.0-0.0); PLATELET COUNT 143 10^3/UL (140-415); RED BLOOD COUNT 2.61 10^6/ul (4.20-5.40); RED CELL DISTRIBUTION WIDTH 18.9 % (11.5-14.5)
[2018-03-06 04:51] LABS: WHITE BLOOD COUNT 23.1 10^3/ul (4.8-10.8)
[2018-03-06 05:08] LABS: POSITIVE DIFF @See below
[2018-03-06 05:19] LABS: ALBUMIN 2.4 g/dl (3.3-4.9); ANION GAP 8 (8-16); BLOOD UREA NITROGEN 45 mg/dl (7-20); CALCIUM 6.2 mg/dl (8.4-10.2); CARBON DIOXIDE 27 mmol/L (21-31); CHLORIDE 114 mmol/L (97-110); GLUCOSE 163 mg/dl (70-220); PHOSPHORUS 3.5 mg/dl (2.5-4.9); SODIUM 144 mmol/L (135-144)
[2018-03-06] MEDS: PANTOPRAZOLE 40 MG INJ IV (05:47)
[2018-03-06] MEDS: FUROSEMIDE 20 MG INJ IV (05:47)
[2018-03-06] MEDS: LEVOTHYROXINE 75 MCG TAB PO (05:47)
[2018-03-06] MEDS: PIPER-TAZO 2.25 GM (PMX) 50 ML IVPB (05:47)
[2018-03-06] MEDS: PROPOFOL 100 ML IV (06:23)
[2018-03-06] MEDS: NEBIVOLOL 5 MG TAB PO (08:35)
[2018-03-06] MEDS: METHYLPREDNISOLONE 125 MG INJ IV (08:35)
[2018-03-06] MEDS: ISOSORBIDE MONONITRATE(SR)30 MG TAB PO (08:36)
[2018-03-06] MEDS: MINOXIDIL 2.5 MG TAB PO (08:36)
[2018-03-06 08:51] LABS: AADO2 Arterial 387.1 mmHg (7.0-24.0); Allen Test ACCEPTAB; Arterial Base Excess -0.2 mmol/L (-3.0-3); Arterial Blood Gas Oxygen Sat 93.1 mmHG (95.0-100.0); Arterial COHb 0 % (0.0-3.0); Arterial Fraction of Oxyhgb 92.9 % (93.0-99.0); Arterial HCO3 24.9 mmol/L (22.0-26.0); Arterial MetHb 0.2 % (0.0-1.5); Arterial Total Hemglobin 9.1 g/dl (12.0-18.0); Arterial pCO2 42.2 mmhg (35-45); MODE VENT - AC; Site Right Radial
[2018-03-06] MEDS: morphine (DRIP) 100 MG/100 ML 100 ML IV (14:21)
[2018-03-11 12:21] LABS: PROCALCITONIN <0.10 ng/mL (<0.10)
== END 2018-03-06 15:51 | disposition expired | DRG 870 ==
LOC: ICU 02-25 08:48 → E/R 10:08 → MS4 12:57
PROC: 05HY33Z Insertion of Infusion Device into Upper Vein, Percutaneous Approach (ICD-10-PCS; principal; 2018-02-25)
PROC: 5A1955Z Respiratory Ventilation, Greater than 96 Consecutive Hours (ICD-10-PCS; 2018-02-25)
PROC: 0BH17EZ Insertion of Endotracheal Airway into Trachea, Via Natural or Artificial Opening (ICD-10-PCS; 2018-02-25)
DX: A41.9 Sepsis, unspecified organism (principal); J96.01 Acute respiratory failure with hypoxia; G93.41 Metabolic encephalopathy; J69.0 Pneumonitis due to inhalation of food and vomit; N17.0 Acute kidney failure with tubular necrosis; J96.02 Acute respiratory failure with hypercapnia; R65.21 Severe sepsis with septic shock; I50.33 Acute on chronic diastolic (congestive) heart failure; E87.0 Hyperosmolality and hypernatremia; I13.0 Hypertensive heart and chronic kidney disease with heart failure and stage 1 through stage 4 chronic kidney disease, or unspecified chronic kidney disease; E11.22 Type 2 diabetes mellitus with diabetic chronic kidney disease; I25.10 Atherosclerotic heart disease of native coronary artery without angina pectoris; R47.02 Dysphasia; E83.52 Hypercalcemia; N18.3 Chronic kidney disease, stage 3 (moderate); E87.6 Hypokalemia; E03.9 Hypothyroidism, unspecified; Z66 Do not resuscitate; R53.81 Other malaise
CPT/HCPCS: 31500; 36430; 36600; 71045; 80048; 80053; 80069; 82270; 82803; 82962; 83605; 83735; 83880; 84100; 84145; 84484; 85014; 85018; 85025; 85610; 85730; 86850; 86900; 86901; 86920; 87040; 87070; 87081; 87400; 93005; 94002; 94003; 94644; 94660; 94770; 96374; 96375; 99291-25